=== PATIENT | female | born 1955 | race Caucasian/White ===

== ENCOUNTER 2017-02-28 11:38 | Emergency (ER) | payer OTHER ==
[2017-02-28 11:44] VITALS: BP 113/76
== END 2017-02-28 12:09 | disposition left against medical advice (07) ==
LOC: ED 11:38
DX: Z53.21 Procedure and treatment not carried out due to patient leaving prior to being seen by health care provider (principal); T63.441A Toxic effect of venom of bees, accidental (unintentional), initial encounter

== ENCOUNTER 2020-12-23 13:59 | Emergency (ER) | payer MEDICARE, OTHER ==
--- OUTSIDE RECORDS SUMMARY | 2020-12-23 14:02 | EXTERNAL MEDICAL SUMMARY RPT | Continuity of Care Document ---
:1955 Demographics Phone Unavailable Preferred Language Bolivian Marital Status Unknown Baptism Affiliation Unknown Race Unknown Ethnic Group Unknown Author Organization [place] Address [address] [phone] Phone Care Team Providers Name Role Phone Clerc Unavailable Unavailable Allergies Encounters Medications Problems date description facility [id number] Pain in [facility] Results
[2020-12-23] MEDS ORDERED: diphenhydrAMINE INJ 50 MG/ML VIAL ONE (14:04)
[2020-12-23] MEDS ORDERED: DEXAMETHASONE 10 MG/ML VIAL IVP STA (14:08)
[2020-12-23] MEDS ORDERED: diphenhydrAMINE INJ 50 MG/ML VIAL IVP STA (14:12)
--- OUTSIDE RECORDS SUMMARY | 2020-12-23 14:43 | EXTERNAL MEDICAL SUMMARY RPT | Continuity of Care Document ---
:1955 Demographics Phone Unavailable Preferred Language Martiniquais Marital Status Unknown Yarsanism Affiliation Unknown Race Unknown Ethnic Group Unknown Author Organization [place] Address [address] [phone] Phone Care Team Providers Name Role Phone Clerc Unavailable Unavailable Allergies Encounters Medications Problems date description facility [id number] Pain in [facility] Results
[2020-12-23 15:07] VITALS: BP 122/73
--- NOTE | 2020-12-23 15:31 | ED Physician Documentation ---
History of Present Illness - Stated complaint Stated Complaint: BEE STING/ALLERGY - Chief complaint Chief Complaint: Allergic Rx - History obtained from History obtained from: Patient - History of Present Illness Timing: Today - Additonal information Additional information: 65-year-old female was stung by a bee today in the left hand and she has previously developed anaphylaxis. She developed some nausea and dyspnea and her administered her epinephrine shot. Following that she became quite shaky and she has come to the emergency department by ambulance. Review of Systems Constitutional: denies: Fever Eyes: denies: Decreased vision Ears: denies: Ear pain Nose: denies: Congestion Throat: denies: Sore throat Cardiac: denies: Chest pain / pressure, Palpitations Respiratory: reports: Dyspnea. denies: Cough GI: reports: Nausea. 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 : None HEENT: None Psych: None Musculoskeletal: None Derm: None - Past Surgical History Past Surgical History: Yes General: Cholecystectomy, Colonoscopy Ortho: Other /USER EXPERIENCE ANALYST: Oophrectomy - Present Medications Home Medications: Ambulatory Orders Medication Instructions Recorded Confirmed Aspirin [Aspirin EC] 81 mg PO QPM 04/04/15 12/23/20 Fexofenadine [Sushma] 180 mg PO QPM 04/04/15 12/23/20 Lysine HCl [l-Lysine] 500 tab PO DAILY 04/04/15 12/23/20 Metformin HCl [Metformin HCl ER] 1,000 mg PO BID 04/04/15 12/23/20 Simvastatin 40 mg PO QPM 04/04/15 12/23/20 Ubidecarenone [Coq-10] 300 mg PO DAILY 04/04/15 12/23/20 lisinopriL [Lisinopril] 5 mg PO QPM 04/04/15 12/23/20 EPINEPHrine [Epinephrine] 0.3 mg IJ PRN PRN #2 syr 12/23/20 EPINEPHrine [Epinephrine] 0.3 mg IM ONCE PRN 12/23/20 12/23/20 - Allergies Allergies/Adverse Reactions: Allergies Allergy/AdvReac Type Severity Reaction Status Date / Time Cephalosporins Allergy Hives Verified 07/11/16 13:04 codeine Allergy Nausea Verified 02/28/17 11:44 venom-honey bee Allergy Anaphylaxis Verified 07/11/16 13:04 [bee venom (honey bee)] - Social History Does the pt smoke?: No Smoking Status: Never smoker Does the pt drink ETOH?: No Does the pt have substance abuse?: No - Immunizations Immunizations are current?: Yes - POLST Patient has POLST: No PD ED PE NORMAL - Vitals Vital signs reviewed: Yes (tachy and hypertensive with tachypnea) - General General: Alert and oriented X 3, Well developed/nourished - HEENT HEENT: Atraumatic, PERRL - Neck Neck: Supple, no meningeal sign, No bony TTP - Cardiac Cardiac: RRR, No murmur - Respiratory Respiratory: Clear bilaterally, Other (dyspnea) - Abdomen Abdomen: Soft, Non tender - Back Back: No CVA TTP, No spinal TTP - Derm Derm: Normal color, Warm and dry, No rash - Extremities Extremities: No deformity, No edema - Neuro Neuro: Alert and oriented X 3, crown ironer 2-12 intact, No motor deficit, No sensory deficit, Normal speech Eye Opening: Spontaneous Motor: Obeys Commands Verbal: Oriented GCS Score: 15 - Psych Psych: Normal mood, Normal affect Results - Vitals Vitals: Vital Signs - 24 hr 12/23/20 12/23/20 12/23/20 14:01 14:14 15:06 Temperature 36.9 C Heart Rate 104 H 91 84 Respiratory 100 H 20 16 Rate Blood Pressure 185/111 H 175/106 H 122/73 O2 Saturation 27 L 100 99 Oxygen O2 Source Room air PD MEDICAL DECISION MAKING - ED course Complexity details: considered differential, d/w patient, d/w family ED course: 65-year-old female with a bee sting has been given epinephrine and shows up into the emergency department with some shaking and anxiety. She is administered 25 mg of Benadryl and 10 mg of dexamethasone and feels much improved and wants to go home. Departure - Departure Disposition: 01 Home, Self Care Clinical Impression: Bee sting reaction Qualifiers: Encounter type: initial encounter Injury intent: accidental or unintentional Qualified Code(s): T63.441A - Toxic effect of venom of bees, accidental (unintentional), initial encounter Condition: Stable Instructions: ED Bite Sting Insect Gen Allergic React Follow-Up: India Juárez MD [Primary Care Provider] - Prescriptions: EPINEPHrine [Epinephrine] 0.3 mg IJ PRN PRN #2 syr PRN Reason: bee sting
== END 2020-12-23 15:49 | disposition home or self-care (01) ==
LOC: ED 13:59
DX: T63.441A Toxic effect of venom of bees, accidental (unintentional), initial encounter (principal); R06.00 Dyspnea, unspecified; R11.0 Nausea; M79.645 Pain in left finger(s); F41.9 Anxiety disorder, unspecified; I10 Essential (primary) hypertension; E11.9 Type 2 diabetes mellitus without complications; Z79.84 Long term (current) use of oral hypoglycemic drugs; Z79.82 Long term (current) use of aspirin
CPT/HCPCS: 36415; 96374; 99283; 99284; J1200

== ENCOUNTER 2021-11-12 11:11 | Outpatient (CLI) | payer MEDICARE, OTHER | END 2021-11-12 23:59 | disposition critical access hospital (66) | LOC: EMS 11:11 | DX: R07.89 Other chest pain (principal); R10.13 Epigastric pain; R11.2 Nausea with vomiting, unspecified; R53.1 Weakness; R42 Dizziness and giddiness | CPT/HCPCS: A0425; A0429 ==

== ENCOUNTER 2021-11-12 11:25 | Emergency (ER) | payer MEDICARE, OTHER ==
--- OUTSIDE RECORDS SUMMARY | 2021-11-12 11:40 | EXTERNAL MEDICAL SUMMARY RPT | Continuity of Care Document ---
:1955 Author Organization [facility] Address [address] [place] [address] Phone Care Team Providers Name Role Phone Clerc Unavailable Unavailable Allergies No information. Encounters No information. Medications No information. Problems Procedures date description facility [id number] [facility] Results No information. Vital Signs date measurement value source 20211111 weight_standard 53.07 lb 20211111 weight_metric 24.07 kg 20211111 temperature_standard 97.7 F 20211111 temperature_metric 36.5 C 20211111 respiration_rate 16 /min 20211111 height_standard 61 in 20211111 height_metric 154.94 cm 20211111 heart_rate 84 /min 20211111 BP_systolic 110 mm[Hg] 20211111 BP_diastolic 70 mm[Hg] 20211111 BMI 22.1 kg/m2
[2021-11-12 11:52] LABS: BASOPHILS % (AUTO) 0.6 %; EOSINOPHILS # (AUTO) 0.5 10^3/uL (0.0-0.7); EOSINOPHILS % (AUTO) 7.3 %; HCT - HEMATOCRIT 44.9 % (37.0-47.0); HGB - HEMOGLOBIN 15.3 g/dL (12.0-16.0); LYMPHOCYTES # (AUTO) 2.7 10^3/uL (1.5-3.5); MEAN CORPUSCULAR HEMOGLOBIN 30.5 pg (27.0-31.0); MEAN CORPUSCULAR HGB CONC 34.1 g/dL (32.0-36.0); MEAN CORPUSCULAR VOLUME 89.6 fL (81.0-99.0); MEAN PLATELET VOLUME 9.5 fL (7.9-10.8); MONOCYTES # (AUTO) 0.6 10^3/uL (0.0-1.0); MONOCYTES % (AUTO) 9.6 %; NEUTROPHILS # (AUTO) 2.7 10^3/uL (1.5-6.6); NEUTROPHILS % (AUTO) 41.2 %; PLT - PLATELET COUNT 185 10^3/uL (130-450); RED BLOOD COUNT 5.01 10^6/uL (4.20-5.40); RED CELL DISTRIBUTION WIDTH 12.1 % (12.0-15.0); WHITE BLOOD COUNT 6.5 x10^3/uL (4.8-10.8)
[2021-11-12 12:11] LABS: ALBUMIN 4.5 g/dL (3.2-5.5); ALBUMIN/GLOBULIN RATIO 1.5 (1.0-2.2); BILIRUBIN,TOTAL 0.9 mg/dL (0.2-1.0); CALCIUM 9.5 mg/dL (8.5-10.3); CREATININE 0.8 mg/dL (0.4-1.0); TOTAL PROTEIN 7.5 g/dL (6.7-8.2)
--- NOTE | 2021-11-12 12:20 | XRAY Report ---
PROCEDURE: Chest 1 View X-Ray INDICATIONS: Chest pain TECHNIQUE: One view of the chest was acquired. COMPARISON: CXR 04/04/2015. FINDINGS: Surgical changes and devices: None. Lungs and pleura: No pleural effusions or pneumothorax. Lungs are clear. Mediastinum: Mediastinal contours appear normal. Heart size is normal. Bones and chest wall: No suspicious bony lesions. Overlying soft tissues appear unremarkable. IMPRESSION: No acute cardiopulmonary abnormality. Reviewed by: Tariq Bassett MD on 11/12/2021 12:19 PM PDT Approved by: Tariq Bassett MD on 11/12/2021 12:19 PM PDT Station ID: [id number]
[2021-11-12] MEDS ORDERED: ONDANSETRON 4 MG/2 ML VIAL IVP STA (12:35)
[2021-11-12] MEDS ORDERED: SUCRALFATE 1 GM/10 ML UDC PO STA (12:36)
[2021-11-12] MEDS ORDERED: FAMOTIDINE 20 MG TABLET PO STA (12:36)
[2021-11-12] MEDS ORDERED: MAG HYDROX/AL HYDROX/SIMETH 30 ML UDC PO STA (12:36)
--- NOTE | 2021-11-12 12:42 | ED Physician Documentation ---
PD HPI CHEST PAIN - Stated complaint Stated Complaint: ABD PX - Chief complaint Chief Complaint: Abd Pain - History obtained from History obtained from: Patient, Family, EMS - History of Present Illness Timing - onset during: Rest Timing - duration: Days Timing - details: Abrupt onset Pain level max: 6 Pain level now: 0 Quality: Pressure, Aching Location: No: Substernal, Left chest, Right chest, Left shoulder/arm, Right shoulder/arm, Left neck, Right neck, Left jaw, Right jaw, Epigastric, Upper back Improved by: No: Rest, Oxygen, Nitro, ASA, Antacids, Other medication, Nothing Worsened by: No: Exertion, Inspiration, Eating, Movement, Palpation, Position Associated symptoms: Nausea, Vomiting. No: Shortness of air, Diaphoresis, Feeling faint / dizzy, General Weakness, Palpitations, Cough Similar symptoms before: Has not had sx before Recently seen: Not recently seen - Additional information Additional information: Patient is a 66-year-old female who presents to the emergency department with chest pain today. She states it started about 2 hours prior to arrival. Has now resolved. She states that it felt like a pressure in the center of her chest. She was nauseated and had vomiting. Has not had similar symptoms previously. No cardiac history. She is a diabetic. The pain did not radiate. She states that she had strawberries this morning and peanut butter. Nothing seemed to make it better or worse. She states that she had a cholecystectomy about 4 to 5 years ago. 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 : None HEENT: None Psych: None Musculoskeletal: None Derm: None - Past Surgical History Past Surgical History: Yes General: Cholecystectomy, Colonoscopy Ortho: Other /ROUTE JUMPER: Oophrectomy - Present Medications Home Medications: Ambulatory Orders Medication Instructions Recorded Confirmed Aspirin [Aspirin EC] 81 mg PO QPM 04/04/15 12/23/20 Fexofenadine [Sushma] 180 mg PO QPM 04/04/15 12/23/20 Lysine HCl [l-Lysine] 500 tab PO DAILY 04/04/15 12/23/20 Metformin HCl [Metformin HCl ER] 1,000 mg PO BID 04/04/15 12/23/20 Simvastatin 40 mg PO QPM 04/04/15 12/23/20 Ubidecarenone [Coq-10] 300 mg PO DAILY 04/04/15 12/23/20 lisinopriL [Lisinopril] 5 mg PO QPM 04/04/15 12/23/20 EPINEPHrine [Epinephrine] 0.3 mg IJ PRN PRN #2 syr 12/23/20 EPINEPHrine [Epinephrine] 0.3 mg IM ONCE PRN 12/23/20 12/23/20 Famotidine [Pepcid] 20 mg PO BID #60 tablet 11/12/21 Promethazine [Phenergan] 25 mg PO Q6H PRN #10 tab 11/12/21 Sucralfate [Carafate] 1 gm PO ACHS #60 tablet 11/12/21 - Allergies Allergies/Adverse Reactions: Allergies Allergy/AdvReac Type Severity Reaction Status Date / Time ceftriaxone [From Rocephin] Allergy Rash Verified 11/12/21 11:39 Cephalosporins Allergy Hives Verified 07/11/16 13:04 codeine Allergy Nausea Verified 02/28/17 11:44 venom-honey bee Allergy Anaphylaxis Verified 07/11/16 13:04 [bee venom (honey bee)] - Social History Does the pt smoke?: No Smoking Status: Never smoker Does the pt drink ETOH?: No Does the pt have substance abuse?: No - Immunizations Immunizations are current?: Yes - POLST Patient has POLST: No PD ED PE NORMAL - Vitals Vital signs reviewed: Yes - General General: Alert and oriented X 3, No acute distress - HEENT HEENT: PERRL, Moist mucous membranes - Neck Neck: Supple, no meningeal sign - Cardiac Cardiac: RRR, Strong equal pulses - Respiratory Respiratory: No respiratory distress, Clear bilaterally - Abdomen Abdomen: Soft, Non distended, Other (Mild tenderness to palpation left upper quadrant. No peritoneal signs) - Derm Derm: Warm and dry - Extremities Extremities: No edema - Neuro Neuro: Alert and oriented X 3 - Psych Psych: Normal mood, Normal affect Results - Vitals Vitals: Vital Signs - 24 hr 11/12/21 11/12/21 11/12/21 11:34 11:40 15:02 Temperature 36.8 C 36.8 C Heart Rate 76 77 77 Respiratory 10 L 17 16 Rate Blood Pressure 179/82 H 179/82 H 118/83 H O2 Saturation 100 98 99 Oxygen O2 Source Room air - EKG (time done) 1144 Rate: Rate (enter#) (75) Rhythm: NSR [place]: Normal Intervals: Normal [place] QRS: Normal Ischemia: Normal ST segments - Labs Labs: Laboratory Tests 11/12/21 11/12/21 11/12/21 11:47 11:47 11:47 WBC 6.5 RBC 5.01 Hgb 15.3 Hct 44.9 MCV 89.6 MCH 30.5 MCHC 34.1 RDW 12.1 Plt Count 185 MPV 9.5 Neut # (Auto) 2.7 Lymph # (Auto) 2.7 Bertie # (Auto) 0.6 Eos # (Auto) 0.5 Baso # (Auto) 0.0 Absolute Nucleated RBC 0.00 Nucleated RBC % 0.0 Sodium 137 Potassium 4.0 Chloride 102 Carbon Dioxide 19 L Anion Gap 16.0 H BUN 24 H Creatinine 0.8 Estimated GFR (MDRD) 71 L Glucose 162 H Calcium 9.5 Total Bilirubin 0.9 AST 33 ALT 33 Alkaline Phosphatase 58 Troponin I High Sens < 2.3 L Total Protein 7.5 Albumin 4.5 Globulin 3.0 Albumin/Globulin Ratio 1.5 Lipase 71 H 11/12/21 13:51 WBC RBC Hgb Hct MCV MCH MCHC RDW Plt Count MPV Neut # (Auto) Lymph # (Auto) Bertie # (Auto) Eos # (Auto) Baso # (Auto) Absolute Nucleated RBC Nucleated RBC % Sodium Potassium Chloride Carbon Dioxide Anion Gap BUN Creatinine Estimated GFR (MDRD) Glucose Calcium Total Bilirubin AST ALT Alkaline Phosphatase Troponin I High Sens 4.9 Total Protein Albumin Globulin Albumin/Globulin Ratio Lipase - Rads (name of study) Chest x-ray Radiology: Final report received, EMP read contemporaneously, See rad report (No acute abnormality) PD MEDICAL DECISION MAKING - ED course Complexity details: reviewed results, re-evaluated patient, considered differential (No ST elevation VA, no aortic dissection, no PE, no tension pneumothorax, no aortic aneurysm), d/w patient ED course: Negative high-sensitivity troponin x2. Asymptomatic in the emergency department after GI cocktail. Likely that her symptoms represent GERD/gastritis. She was mildly tender epigastric/left upper quadrant. No peritoneal signs. No acute findings on EKG or chest x-ray. We will have her follow-up with her PCP for a cardiac stress test and for further care. Patient counseled regarding signs and symptoms for which I believe and urgent re-evaluation would be necessary. Patient with good understanding of and agreement to plan and is comfortable going home at this time This document was made in part using voice recognition software. While efforts are made to proofread this document, sound alike and grammatical errors may occur. Departure - Departure Disposition: Home, Self Care Clinical Impression: Chest pain Qualifiers: Chest pain type: unspecified Qualified Code(s): R07.9 - Chest pain, unspecified GERD (gastroesophageal reflux disease) Qualifiers: Esophagitis presence: with esophagitis Esophagitis bleeding: without hemorrhage Qualified Code(s): K21.00 - Gastro-esophageal reflux disease with esophagitis, without bleeding Condition: Good Instructions: ED Chest Pain Atypical Unkn Cause, ED GERD Follow-Up: SAMY MIRZA MD [Primary Care Provider] - Prescriptions: Sucralfate [Carafate] 1 gm PO ACHS #60 tablet Famotidine [Pepcid] 20 mg PO BID #60 tablet Promethazine [Phenergan] 25 mg PO Q6H PRN #10 tab PRN Reason: Nausea / Vomiting Comments: Your heart test do not show any acute abnormalities today. It is recommended that you follow-up with your doctor to have a cardiac stress test. Please return if you worsen. Return if your symptoms recur. Your doctor may also want to schedule an endoscopy for you to evaluate for possible gastroesophageal reflux and/or ulcers. Your prescriptions were sent to the [facility] today. Discharge Date/Time: 11/12/21 15:11
[2021-11-12 15:11] VITALS: BP 118/83
== END 2021-11-12 15:11 | disposition home or self-care (01) ==
LOC: EDUNIT# → ED 11:25
DX: R07.9 Chest pain, unspecified (principal); K21.9 Gastro-esophageal reflux disease without esophagitis
CPT/HCPCS: 36415; 71045; 80053; 83690; 84484; 85025; 93005; 96374; 99284; A9270

== ENCOUNTER 2022-08-03 15:07 | Emergency (ER) | payer MEDICARE, OTHER ==
--- OUTSIDE RECORDS SUMMARY | 2022-08-03 15:44 | EXTERNAL MEDICAL SUMMARY RPT | Continuity of Care Document ---
:1955 Author Organization [facility] Address [address] [place] [address] Phone Care Team Providers Name Role Phone India Juárez Unavailable Unavailable Allergies No information. Encounters No information. Functional Status No information. Immunizations No information. Medications No information. Problems No information. Procedures No information. Results/Labs test date author facility value unit interpret ation Result panel 1 (unknown) (no (unknown) (unknown) (no value) (units (unk nown) date) unknown) (unknown) (no (unknown) (unknown) (1) Obstructive (units (unknown) date) sleep apnea unknown) (adult) (pediatric): (unknown) (no (unknown) (unknown) (2) Excessive (units ( unknown) date) daytime unknown) sleepiness: (unknown) (no (unknown) (unknown) (3) Insomnia: (units ( unknown) date) unknown) (unknown) (no (unknown) (unknown) [id number] (units (unkno wn) date) unknown) (unknown) (no (unknown) (unknown) 06/21/22 (units (unkno wn) date) unknown) (unknown) (no (unknown) (unknown) Adhere to (units (unkn own) date) regular mealtime unknown) schedule, avoid snacking (unknown) (no (unknown) (unknown) Affect: normal (units (unknown) date) affect unknown) (unknown) (no (unknown) (unknown) Age/Sex: 67 / F (units (unknown) date) Date of Service: unknown) (unknown) (no (unknown) (unknown) Jessica is here (units (unknown) date) for her 6-monthly unknown) visit to ensure stability with her PAP (unknown) (no (unknown) (unknown) Allergies (units (unkn own) date) unknown) (unknown) (no (unknown) (unknown) [place] (units ( unknown) date) [id number] unknown) (unknown) (no (unknown) (unknown) Assessment + (units (u nknown) date) Plan unknown) (unknown) (no (unknown) (unknown) Assessment and (units (unknown) date) Plan: unknown) (unknown) (no (unknown) (unknown) Associate your (units ( unknown) date) bed with sleep. unknown) It's not a good idea to use your bed to watch TV, (unknown) (no (unknown) (unknown) Attending Dr: (units ( unknown) date) rOal Perez MD unknown) (unknown) (no (unknown) (unknown) Attitude: (units (unkn own) date) cooperative unknown) (unknown) (no (unknown) (unknown) AutoCPAP Set (units (u nknown) date) Pressures: 7-13 unknown) cwp (unknown) (no (unknown) (unknown) Avoid alcohol (units ( unknown) date) after 4 pm unknown) (unknown) (no (unknown) (unknown) Avoid (units (unkno wn) date) medications which unknown) may interfere with sleep (unknown) (no (unknown) (unknown) Avoid random (units (u nknown) date) napping during unknown) the day; it can disturb the normal pattern of sleep (unknown) (no (unknown) (unknown) Avoid stimulants (units (unknown) date) such as caffeine, unknown) nicotine, and alcohol too close to bedtime. (unknown) (no (unknown) (unknown) CPAP (7-13 cwp) (units (unknown) date) unknown) (unknown) (no (unknown) (unknown) CPAP, and will (units (unknown) date) not come in for unknown) adjustments. (unknown) (no (unknown) (unknown) Cardiac (units (unkno wn) date) unknown) (unknown) (no (unknown) (unknown) Chief Complaint: (units (unknown) date) Patient is here unknown) to follow up on therapy for RUTH (unknown) (no (unknown) (unknown) Clinical Course (units (unknown) date) unknown) (unknown) (no (unknown) (unknown) Cognition: (units (unk nown) date) normal cognition unknown) (unknown) (no (unknown) (unknown) Condition is (units (u nknown) date) Onset: Chronic unknown) and ongoing condition (unknown) (no (unknown) (unknown) Conjunctivae: (units ( unknown) date) conjunctivae unknown) normal (unknown) (no (unknown) (unknown) Consider weaning (units (unknown) date) caffeine use, unknown) starting with no caffeine after 3pm (unknown) (no (unknown) (unknown) Const (units (unkno wn) date) unknown) (unknown) (no (unknown) (unknown) : 1955 (units (unknown) date) Acct:[id number] unknown) (unknown) (no (unknown) (unknown) Denies chest (units (u nknown) date) pain or nocturnal unknown) palpitations (unknown) (no (unknown) (unknown) Denies (units (unkno wn) date) depression, unknown) anxiety, napping, hypnagogic hallucinations or sleep (unknown) (no (unknown) (unknown) Denies dyspnea (units (unknown) date) at night or cough unknown) (unknown) (no (unknown) (unknown) Denies myalgia (units (unknown) date) interfering with unknown) sleep, arthralgia interfering with sleep, (unknown) (no (unknown) (unknown) Denies reflux (units ( unknown) date) pain at night or unknown) bloating on CPAP (unknown) (no (unknown) (unknown) Denies snoring (units (unknown) date) and Denies stops unknown) breathing during sleep (unknown) (no (unknown) (unknown) Depression (units (unk nown) date) unknown) (unknown) (no (unknown) (unknown) Dept at (units (unkno wn) date) . unknown) (unknown) (no (unknown) (unknown) Details: (units (unkno wn) date) unknown) (unknown) (no (unknown) (unknown) Device data last (units (unknown) date) 30 days: unknown) (unknown) (no (unknown) (unknown) Documented By: (units (unknown) date) Oral Perez MD unknown) 06/21/22 1547 (unknown) (no (unknown) (unknown) Draft (units (unkno wn) date) unknown) (unknown) (no (unknown) (unknown) Drowsy driving (units (unknown) date) handout made unknown) available. (unknown) (no (unknown) (unknown) ENT (units (unkno wn) date) unknown) (unknown) (no (unknown) (unknown) Ears: hearing (units ( unknown) date) grossly normal unknown) bilaterally and external ears normal (unknown) (no (unknown) (unknown) Effort + (units (unkno wn) date) Inspection: unknown) normal respiratory effort, able to speak in complete (unknown) (no (unknown) (unknown) Ensure adequate (units (unknown) date) exposure to unknown) natural light. This is particularly important for (unknown) (no (unknown) (unknown) Establish a (units (unk nown) date) regular relaxing unknown) bedtime routine. Try to avoid emotionally upsetting (unknown) (no (unknown) (unknown) Exam Narrative (units (unknown) date) unknown) (unknown) (no (unknown) (unknown) Exam Narrative: (units (unknown) date) unknown) (unknown) (no (unknown) (unknown) Exam (units (unkno wn) date) unknown) (unknown) (no (unknown) (unknown) Eyes (units (unkno wn) date) unknown) (unknown) (no (unknown) (unknown) Food can be (units (un known) date) disruptive right unknown) before sleep; stay away from large meals close to (unknown) (no (unknown) (unknown) GERD (units (unkno wn) date) (gastroesophageal unknown) reflux disease) (unknown) (no (unknown) (unknown) GI (units (unkno wn) date) unknown) (unknown) (no (unknown) (unknown) (units (unkno wn) date) unknown) (unknown) (no (unknown) (unknown) General: (units (unkno wn) date) cooperative and unknown) no acute distress (unknown) (no (unknown) (unknown) General: patient (units (unknown) date) alert, patient unknown) awake and patient oriented x3 (unknown) (no (unknown) (unknown) Get regular (units (un known) date) moderate exercise unknown) (30 minutes, 3x/week) (unknown) (no (unknown) (unknown) HENMT (units (unkno wn) date) unknown) (unknown) (no (unknown) (unknown) HPI Sleep Follow (units (unknown) date) Up unknown) (unknown) (no (unknown) (unknown) HPI (units (unkno wn) date) unknown) (unknown) (no (unknown) (unknown) Head: normal to (units (unknown) date) inspection unknown) (unknown) (no (unknown) (unknown) Hyperlipidemia (units (unknown) date) unknown) (unknown) (no (unknown) (unknown) Hypertension (units (u nknown) date) unknown) (unknown) (no (unknown) (unknown) Intake (units (unkno wn) date) unknown) (unknown) (no (unknown) (unknown) Light exposure (units (unknown) date) during the day unknown) helps maintain a healthy sleep-wake cycle. In (unknown) (no (unknown) (unknown) Loc: SLEEP (units (unk nown) date) unknown) (unknown) (no (unknown) (unknown) Make sure that (units ( unknown) date) the sleep unknown) environment is pleasant and relaxing. 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 (-12/29/20) (unknown) (no (unknown) (unknown) Mood: congruent (units (unknown) date) mood unknown) (unknown) (no (unknown) (unknown) Musc (units (unkno wn) date) unknown) (unknown) (no (unknown) (unknown) Neck (units (unkno wn) date) unknown) (unknown) (no (unknown) (unknown) Neck: normal (units (u nknown) date) visual inspection unknown) (unknown) (no (unknown) (unknown) Neuro (units (unkno wn) date) unknown) (unknown) (no (unknown) (unknown) Neurological (units (u nknown) date) unknown) (unknown) (no (unknown) (unknown) No Known Drug (units ( unknown) date) Allergies Allergy unknown) (Unverified 11/08/18 10:26) (unknown) (no (unknown) (unknown) Nutritional (units (un known) date) Appearance: unknown) average body habitus (unknown) (no (unknown) (unknown) Obstructive (units (un known) date) sleep apnea of unknown) adult (unknown) (no (unknown) (unknown) PFSH (units (unkno wn) date) unknown) (unknown) (no (unknown) (unknown) Patient got her (units (unknown) date) new [employer] unknown) II and is on nasal CPAP at 7-13 cwp and reports (unknown) (no (unknown) (unknown) Patient (units (unkno wn) date) instructed to use unknown) scheduled naps as needed for drowsiness safety (unknown) (no (unknown) (unknown) Patient reports (units (unknown) date) a history of unknown) snoring and a disturbed sleep pattern. There is (unknown) (no (unknown) (unknown) Patient reports (units (unknown) date) difficulty unknown) falling asleep is denied, difficulty staying asleep (unknown) (no (unknown) (unknown) Patient reports (units (unknown) date) symptoms of unknown) chronic insomnia for more than 3 months as evidenced (unknown) (no (unknown) (unknown) Patient was (units (un known) date) encouraged to unknown) continue PAP therapy at 7-15 cwp (unknown) (no (unknown) (unknown) Patient was (units (un known) date) encouraged to unknown) increase CPAP usage to a minimum of 4 hours a night, (unknown) (no (unknown) (unknown) Patient was (units (un known) date) instructed to unknown) avoid driving or operating heavy machinery when (unknown) (no (unknown) (unknown) Patient was (units (un known) date) instructed to unknown) return sooner if any questions or concerns arise. (unknown) (no (unknown) (unknown) Patient: (units (unkno wn) date) Jessica Caro E unknown) MR#: [id number] (unknown) (no (unknown) (unknown) Pertinent (units (unkn own) date) Positives/Negativ unknown) es (unknown) (no (unknown) (unknown) Plan (units (unkno wn) date) unknown) (unknown) (no (unknown) (unknown) Properly timed (units (unknown) date) exercise can unknown) promote good sleep. Vigorous exercise should be (unknown) (no (unknown) (unknown) Psych (units (unkno wn) date) unknown) (unknown) (no (unknown) (unknown) Psychological (units ( unknown) date) unknown) (unknown) (no (unknown) (unknown) ROS Sleep (units (unkn own) date) unknown) (unknown) (no (unknown) (unknown) Reason For Visit (units (unknown) date) unknown) (unknown) (no (unknown) (unknown) Reports morning (units (unknown) date) headache; Denies unknown) dizzy in the morning, vertigo or trouble (unknown) (no (unknown) (unknown) Reports nasal (units ( unknown) date) congestion at unknown) night and dry mouth in the morning; Denies runny (unknown) (no (unknown) (unknown) Reports nocturia (units (unknown) date) unknown) (unknown) (no (unknown) (unknown) Reports seasonal (units (unknown) date) allergies; Denies unknown) itchy eyes, redness or blurry vision (unknown) (no (unknown) (unknown) Resp (units (unkno wn) date) unknown) (unknown) (no (unknown) (unknown) Respiratory (units (un known) date) unknown) (unknown) (no (unknown) (unknown) Return visit in (units (unknown) date) 6 months to unknown) assess continued response to PAP therapy (unknown) (no (unknown) (unknown) Sclera: sclerae (units (unknown) date) normal unknown) (unknown) (no (unknown) (unknown) Signed By: (units (unk nown) date) unknown) (unknown) (no (unknown) (unknown) Sleep Schedule (units (unknown) date) Branch: unknown) consistent, daytime somnolence frequent, snoring not (unknown) (no (unknown) (unknown) Sleep Visit (units (un known) date) unknown) (unknown) (no (unknown) (unknown) [facility] unknown) (unknown) (no (unknown) (unknown) Smoking Status: (units (unknown) date) Never smoker unknown) (unknown) (no (unknown) (unknown) Social History (units (unknown) date) unknown) (unknown) (no (unknown) (unknown) Speech: speech (units (unknown) date) normal unknown) (unknown) (no (unknown) (unknown) Symptoms (units (unkno wn) date) unknown) (unknown) (no (unknown) (unknown) The patient (units (un known) date) reports symptoms unknown) of excessive daytime sleepiness as evidenced by (unknown) (no (unknown) (unknown) This note may (units ( unknown) date) have been all or unknown) partially generated using voice recognition (unknown) (no (unknown) (unknown) Tobacco + (units (unkn own) date) Substance Use unknown) (unknown) (no (unknown) (unknown) Tobacco Status (units (unknown) date) unknown) (unknown) (no (unknown) (unknown) Treatment (units (unkn own) date) Effects: Pap unknown) Treatment Response/Side Effects: adherent to current PAP (unknown) (no (unknown) (unknown) Treatment (units (unkn own) date) Response/Side unknown) Affects (unknown) (no (unknown) (unknown) Type 2 diabetes (units (unknown) date) mellitus unknown) (unknown) (no (unknown) (unknown) Usage: 100%, (units (u nknown) date) w/100% of that unknown) time > 4 hours. Leak: 14 sec flowAHI: 3.8 (unknown) (no (unknown) (unknown) Visit Reasons: (units (unknown) date) 6m unknown) (unknown) (no (unknown) (unknown) Visit type (FU): (units (unknown) date) follow up of RUTH unknown) therapy Follow up evaluation of RUTH therapy: (unknown) (no (unknown) (unknown) While alcohol is (units (unknown) date) well known to unknown) speed the onset of sleep, it disrupts sleep in (unknown) (no (unknown) (unknown) activities, you (units (unknown) date) may have more unknown) problems getting back to sleep during the night. (unknown) (no (unknown) (unknown) addition, (units (unkn own) date) avoiding unknown) nighttime bright light exposure, which can occur with many (unknown) (no (unknown) (unknown) also a history (units (unknown) date) of hypertension unknown) with a Mallampati score of IV. For this the (unknown) (no (unknown) (unknown) an [place] (units (unk nown) date) Sleepiness Score unknown) of 12/24. Discussed symptoms and risks of (unknown) (no (unknown) (unknown) an independent (units (unknown) date) problem. This has unknown) improved with more consolidated sleep and she (unknown) (no (unknown) (unknown) and wakefulness. (units (unknown) date) Scheduled napping unknown) may be considered if appropriate for the opt (unknown) (no (unknown) (unknown) appreciated, (units (u nknown) date) apnea not unknown) witnessed, choking or gasping Choking or Gasping Branch: (unknown) (no (unknown) (unknown) bedtime. Also (units (u nknown) date) dietary changes unknown) can cause sleep problems, if someone is struggling (unknown) (no (unknown) (unknown) bothering her (units ( unknown) date) sleep is her unknown) 's snoring; it appears he stopped using his (unknown) (no (unknown) (unknown) bring your (units (unk nown) date) problems to bed. unknown) (unknown) (no (unknown) (unknown) but increased (units ( unknown) date) benefit from more unknown) usage was also explained. (unknown) (no (unknown) (unknown) by trouble (units (unkn own) date) falling asleep, unknown) trouble staying asleep and non-restorative sleep. Thi (unknown) (no (unknown) (unknown) can be seen (units (un known) date) secondary to unknown) sleep apnea, insomnia, depression, medical conditions (unknown) (no (unknown) (unknown) caregiver/suppor (units (unknown) date) t person: No unknown) (unknown) (no (unknown) (unknown) comfortable, the (units (unknown) date) room should be unknown) quiet, not too hot or cold, or too bright. (unknown) (no (unknown) (unknown) concentrating or (units (unknown) date) focusing unknown) (unknown) (no (unknown) (unknown) congestion at (units ( unknown) date) night, reports unknown) dry mouth (when the is no water in the machine), (unknown) (no (unknown) (unknown) continued use of (units (unknown) date) PAP therapy. The unknown) patient is willing to continue with PAP (unknown) (no (unknown) (unknown) conversations (units ( unknown) date) and activities unknown) before trying to go to sleep. Don't dwell on, or (unknown) (no (unknown) (unknown) daytime sleeping (units (unknown) date) and an elevated unknown) [place] Sleepiness Scale score of 06/10. This (unknown) (no (unknown) (unknown) denied (units (unkno wn) date) unknown) (unknown) (no (unknown) (unknown) denied, early (units ( unknown) date) morning awakening unknown) denied, spending time in bed not sleeping a (unknown) (no (unknown) (unknown) denied, epworth (units (unknown) date) sleep scale score unknown) (07/10), bruxism Bruxism Branch: denied, sleep (unknown) (no (unknown) (unknown) denies night (units (u nknown) date) sweats, reports unknown) morning headache (migraines), reports nasal (unknown) (no (unknown) (unknown) denies sore (units (un known) date) throat in the unknown) morning, denies nocturnal cough, denies nocturnal (unknown) (no (unknown) (unknown) details: to (units (un known) date) Kristopher, lives in unknown) [place] (unknown) (no (unknown) (unknown) discuss OA for (units (unknown) date) travel. unknown) (unknown) (no (unknown) (unknown) dishes. And, (units (u nknown) date) remember, unknown) chocolate has caffeine. (unknown) (no (unknown) (unknown) dizziness in the (units (unknown) date) morning or denies unknown) trouble consentrating/foc using durng the day (unknown) (no (unknown) (unknown) done before bed (units (unknown) date) to help initiate unknown) a restful night's sleep. (unknown) (no (unknown) (unknown) drowsiness. (units (un known) date) unknown) (unknown) (no (unknown) (unknown) drowsy. (units (unkno wn) date) unknown) (unknown) (no (unknown) (unknown) given a list of (units (unknown) date) dentists who unknown) fabricate oral appliances. (unknown) (no (unknown) (unknown) have occurred. (units (unknown) date) If there are any unknown) questions, please contact the Medical Records (unknown) (no (unknown) (unknown) household (units (unkn own) date) members: spouse unknown) (unknown) (no (unknown) (unknown) housing: house (units (unknown) date) unknown) (unknown) (no (unknown) (unknown) imal sleep (units (unk nown) date) schedule. unknown) (unknown) (no (unknown) (unknown) including no (units (u nknown) date) snoring and no unknown) daytime sleepiness. Her compliance data indicates (unknown) (no (unknown) (unknown) listen to the (units ( unknown) date) radio, or read as unknown) if you associate falling asleep with these (unknown) (no (unknown) (unknown) little, normal (units ( unknown) date) bedtime unknown) (8559-0113), normal wake time (0400-6086), sleep schedule (unknown) (no (unknown) (unknown) lives (units (unkno wn) date) independently: unknown) Yes (unknown) (no (unknown) (unknown) marital status: (units (unknown) date) unknown) (unknown) (no (unknown) (unknown) may occur. (units (unk nown) date) Occasional unknown) wrong-word or 'sound-alike' substitutions may have (unknown) (no (unknown) (unknown) no problems with (units (unknown) date) the pressure or unknown) the mask. She continues to use her machine (unknown) (no (unknown) (unknown) nose or sore (units (u nknown) date) throat in the unknown) morning (unknown) (no (unknown) (unknown) occurred due to (units (unknown) date) the inherent unknown) limitations of voice recognition software. Please (unknown) (no (unknown) (unknown) older people who (units (unknown) date) may not venture unknown) outside as frequently as children and adults. (unknown) (no (unknown) (unknown) on PAP well and (units (unknown) date) sleep quality unknown) well (unknown) (no (unknown) (unknown) or can be a (units (unk nown) date) primary problem. unknown) This is unchanged today with a daytime sleeping and (unknown) (no (unknown) (unknown) palpitations, (units ( unknown) date) denies heart burn unknown) symptoms at night, reports nocturia, denies (unknown) (no (unknown) (unknown) paralysis (units (unkn own) date) unknown) (unknown) (no (unknown) (unknown) patient has been (units (unknown) date) on nasal CPAP unknown) therapy. Her machine was replaced in 2017 and is (unknown) (no (unknown) (unknown) personal (units (unkno wn) date) electronic unknown) devices, can also help maintain a healthy sleep-wake cycle. (unknown) (no (unknown) (unknown) read the note (units ( unknown) date) carefully and unknown) recognize, using context, where these substitutions (unknown) (no (unknown) (unknown) regularly and (units ( unknown) date) clinical response unknown) to nasal CPAP, with an optimal flowAHI. She (unknown) (no (unknown) (unknown) reports no (units (unk nown) date) snoring and says unknown) she feels rested in the morning. She would like to (unknown) (no (unknown) (unknown) reports she (units (un known) date) feels she is unknown) sleeping well. Sleep hygiene has been reviewed. (unknown) (no (unknown) (unknown) s can be seen (units (u nknown) date) secondary to unknown) sleep apnea, depression, medical conditions or can be (unknown) (no (unknown) (unknown) sentences, no (units ( unknown) date) audible wheezes unknown) and no cough (unknown) (no (unknown) (unknown) software. (units (unkn own) date) Although every unknown) effort is made to edit content, manager report errors (unknown) (no (unknown) (unknown) taken in the (units (u nknown) date) morning or late unknown) afternoon. A relaxing exercise, like yoga, can be (unknown) (no (unknown) (unknown) talking Sleep (units ( unknown) date) Talking Branch: unknown) denied and sleep walking Sleep Walking Branch: (unknown) (no (unknown) (unknown) that her (units (unkno wn) date) pressure should unknown) be increased. It is clear she would benefit from the (unknown) (no (unknown) (unknown) the second half (units (unknown) date) as the body unknown) begins to metabolize the alcohol, causing arousal. (unknown) (no (unknown) (unknown) therapy. Patient (units (unknown) date) would also like unknown) to consider oral appliance therapy. She will be (unknown) (no (unknown) (unknown) therapy. She has (units (unknown) date) been doing well unknown) since last visit. She is reporting no problems (unknown) (no (unknown) (unknown) treatment stable (units (unknown) date) on treatment unknown) (unknown) (no (unknown) (unknown) weakness (units (unkno wn) date) associated with unknown) strong emotion or sleep paralysis (unknown) (no (unknown) (unknown) with a sleep (units (u nknown) date) problem, it's not unknown) a good time to start experimenting with spicy (unknown) (no (unknown) (unknown) with the (units (unkno wn) date) machine, mask or unknown) pressure. Mentions that the only thing really (unknown) (no (unknown) (unknown) working well. (units ( unknown) date) Patient's unknown) compliance is excellent with positive clinical response Result panel 2 (unknown) (no (unknown) (unknown) (no value) (units (unk nown) date) unknown) (unknown) (no (unknown) (unknown) (1) Obstructive (units (unknown) date) sleep apnea unknown) (adult) (pediatric): (unknown) (no (unknown) (unknown) (2) Excessive (units ( unknown) date) daytime unknown) sleepiness: (unknown) (no (unknown) (unknown) (3) Insomnia: (units ( unknown) date) unknown) (unknown) (no (unknown) (unknown) [id number] (units (unkno wn) date) unknown) (unknown) (no (unknown) (unknown) 06/21/22 (units (unkno wn) date) unknown) (unknown) (no (unknown) (unknown) Adhere to (units (unkn own) date) regular mealtime unknown) schedule, avoid snacking (unknown) (no (unknown) (unknown) Affect: normal (units (unknown) date) affect unknown) (unknown) (no (unknown) (unknown) Age/Sex: 67 / F (units (unknown) date) Date of Service: unknown) (unknown) (no (unknown) (unknown) Jessica is here (units (unknown) date) for her 6-monthly unknown) visit to ensure stability with her PAP (unknown) (no (unknown) (unknown) Allergies (units (unkn own) date) unknown) (unknown) (no (unknown) (unknown) 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 unknown) It's not a good idea to use your bed to watch TV, (unknown) (no (unknown) (unknown) Attending Dr: (units ( unknown) date) Oral Perez MD unknown) (unknown) (no (unknown) (unknown) Attitude: (units (unkn own) date) cooperative unknown) (unknown) (no (unknown) (unknown) AutoCPAP Set (units (u nknown) date) Pressures: 7-13 unknown) cwp (unknown) (no (unknown) (unknown) Avoid alcohol (units ( unknown) date) after 4 pm unknown) (unknown) (no (unknown) (unknown) Avoid (units (unkno wn) date) medications which unknown) may interfere with sleep (unknown) (no (unknown) (unknown) Avoid random (units (u nknown) date) napping during unknown) the day; it can disturb the normal pattern of sleep (unknown) (no (unknown) (unknown) Avoid stimulants (units (unknown) date) such as caffeine, unknown) nicotine, and alcohol too close to bedtime. (unknown) (no (unknown) (unknown) CPAP (7-13 cwp) (units (unknown) date) unknown) (unknown) (no (unknown) (unknown) CPAP, and will (units (unknown) date) not come in for unknown) adjustments. (unknown) (no (unknown) (unknown) Cardiac (units (unkno wn) date) unknown) (unknown) (no (unknown) (unknown) Chief Complaint: (units (unknown) date) Patient is here unknown) to follow up on therapy for RUTH (unknown) (no (unknown) (unknown) Clinical Course (units (unknown) date) unknown) (unknown) (no (unknown) (unknown) Cognition: (units (unk nown) date) normal cognition unknown) (unknown) (no (unknown) (unknown) Condition is (units (u nknown) date) Onset: Chronic unknown) and ongoing condition (unknown) (no (unknown) (unknown) Conjunctivae: (units ( unknown) date) conjunctivae unknown) normal (unknown) (no (unknown) (unknown) Consider weaning (units (unknown) date) caffeine use, unknown) starting with no caffeine after 3pm (unknown) (no (unknown) (unknown) Const (units (unkno wn) date) unknown) (unknown) (no (unknown) (unknown) : 1955 (units (unknown) date) Acct:[id number] unknown) (unknown) (no (unknown) (unknown) Denies chest (units (u nknown) date) pain or nocturnal unknown) palpitations (unknown) (no (unknown) (unknown) Denies (units (unkno wn) date) depression, unknown) anxiety, napping, hypnagogic hallucinations or sleep (unknown) (no (unknown) (unknown) Denies dyspnea (units (unknown) date) at night or cough unknown) (unknown) (no (unknown) (unknown) Denies myalgia (units (unknown) date) interfering with unknown) sleep, arthralgia interfering with sleep, (unknown) (no (unknown) (unknown) Denies reflux (units ( unknown) date) pain at night or unknown) bloating on CPAP (unknown) (no (unknown) (unknown) Denies snoring (units (unknown) date) and Denies stops unknown) breathing during sleep (unknown) (no (unknown) (unknown) Depression (units (unk nown) date) unknown) (unknown) (no (unknown) (unknown) Dept at (units (unkno wn) date) . unknown) (unknown) (no (unknown) (unknown) Details: (units (unkno wn) date) unknown) (unknown) (no (unknown) (unknown) Device data last (units (unknown) date) 30 days: unknown) (unknown) (no (unknown) (unknown) Documented By: (units (unknown) date) Oral Perez MD unknown) 06/21/22 1547 (unknown) (no (unknown) (unknown) Draft (units (unkno wn) date) unknown) (unknown) (no (unknown) (unknown) Drowsy driving (units (unknown) date) handout made unknown) available. (unknown) (no (unknown) (unknown) ENT (units (unkno wn) date) unknown) (unknown) (no (unknown) (unknown) Ears: hearing (units ( unknown) date) grossly normal unknown) bilaterally and external ears normal (unknown) (no (unknown) (unknown) Effort + (units (unkno wn) date) Inspection: unknown) normal respiratory effort, able to speak in complete (unknown) (no (unknown) (unknown) Ensure adequate (units (unknown) date) exposure to unknown) natural light. This is particularly important for (unknown) (no (unknown) (unknown) Establish a (units (unk nown) date) regular relaxing unknown) bedtime routine. Try to avoid emotionally upsetting (unknown) (no (unknown) (unknown) Exam Narrative (units (unknown) date) unknown) (unknown) (no (unknown) (unknown) Exam Narrative: (units (unknown) date) unknown) (unknown) (no (unknown) (unknown) Exam (units (unkno wn) date) unknown) (unknown) (no (unknown) (unknown) Eyes (units (unkno wn) date) unknown) (unknown) (no (unknown) (unknown) Food can be (units (un known) date) disruptive right unknown) before sleep; stay away from large meals close to (unknown) (no (unknown) (unknown) GERD (units (unkno wn) date) (gastroesophageal unknown) reflux disease) (unknown) (no (unknown) (unknown) GI (units (unkno wn) date) unknown) (unknown) (no (unknown) (unknown) (units (unkno wn) date) unknown) (unknown) (no (unknown) (unknown) General: (units (unkno wn) date) cooperative and unknown) no acute distress (unknown) (no (unknown) (unknown) General: patient (units (unknown) date) alert, patient unknown) awake and patient oriented x3 (unknown) (no (unknown) (unknown) Get regular (units (un known) date) moderate exercise unknown) (30 minutes, 3x/week) (unknown) (no (unknown) (unknown) HENMT (units (unkno wn) date) unknown) (unknown) (no (unknown) (unknown) HPI Sleep Follow (units (unknown) date) Up unknown) (unknown) (no (unknown) (unknown) HPI (units (unkno wn) date) unknown) (unknown) (no (unknown) (unknown) Head: normal to (units (unknown) date) inspection unknown) (unknown) (no (unknown) (unknown) Hyperlipidemia (units (unknown) date) unknown) (unknown) (no (unknown) (unknown) Hypertension (units (u nknown) date) unknown) (unknown) (no (unknown) (unknown) Intake (units (unkno wn) date) unknown) (unknown) (no (unknown) (unknown) Light exposure (units (unknown) date) during the day unknown) helps maintain a healthy sleep-wake cycle. In (unknown) (no (unknown) (unknown) Loc: SLEEP (units (unk nown) date) unknown) (unknown) (no (unknown) (unknown) Make sure that (units ( unknown) date) the sleep unknown) environment is pleasant and relaxing. 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 (-12/29/20) (unknown) (no (unknown) (unknown) Mood: congruent (units (unknown) date) mood unknown) (unknown) (no (unknown) (unknown) Musc (units (unkno wn) date) unknown) (unknown) (no (unknown) (unknown) Neck (units (unkno wn) date) unknown) (unknown) (no (unknown) (unknown) Neck: normal (units (u nknown) date) visual inspection unknown) (unknown) (no (unknown) (unknown) Neuro (units (unkno wn) date) unknown) (unknown) (no (unknown) (unknown) Neurological (units (u nknown) date) unknown) (unknown) (no (unknown) (unknown) No Known Drug (units ( unknown) date) Allergies Allergy unknown) (Unverified 11/08/18 10:26) (unknown) (no (unknown) (unknown) Nutritional (units (un known) date) Appearance: unknown) average body habitus (unknown) (no (unknown) (unknown) Obstructive (units (un known) date) sleep apnea of unknown) adult (unknown) (no (unknown) (unknown) PFSH (units (unkno wn) date) unknown) (unknown) (no (unknown) (unknown) Patient (units (unkno wn) date) instructed to use unknown) scheduled naps as needed for drowsiness safety (unknown) (no (unknown) (unknown) Patient is on a (units (unknown) date) [employer] unknown) and is on nasal CPAP at 7-13 cwp and reports no (unknown) (no (unknown) (unknown) Patient reports (units (unknown) date) a history of unknown) snoring and a disturbed sleep pattern. There is (unknown) (no (unknown) (unknown) Patient reports (units (unknown) date) difficulty unknown) falling asleep is denied, difficulty staying asleep (unknown) (no (unknown) (unknown) Patient reports (units (unknown) date) symptoms of unknown) chronic insomnia for more than 3 months as evidenced (unknown) (no (unknown) (unknown) Patient was (units (un known) date) encouraged to unknown) continue PAP therapy at 7-15 cwp (unknown) (no (unknown) (unknown) Patient was (units (un known) date) encouraged to unknown) increase CPAP usage to a minimum of 4 hours a night, (unknown) (no (unknown) (unknown) Patient was (units (un known) date) instructed to unknown) avoid driving or operating heavy machinery when (unknown) (no (unknown) (unknown) Patient was (units (un known) date) instructed to unknown) return sooner if any questions or concerns arise. (unknown) (no (unknown) (unknown) Patient: (units (unkno wn) date) Jessica Caro E unknown) MR#: [id number] (unknown) (no (unknown) (unknown) Pertinent (units (unkn own) date) Positives/Negativ unknown) es (unknown) (no (unknown) (unknown) Plan (units (unkno wn) date) unknown) (unknown) (no (unknown) (unknown) Properly timed (units (unknown) date) exercise can unknown) promote good sleep. Vigorous exercise should be (unknown) (no (unknown) (unknown) Psych (units (unkno wn) date) unknown) (unknown) (no (unknown) (unknown) Psychological (units ( unknown) date) unknown) (unknown) (no (unknown) (unknown) ROS Sleep (units (unkn own) date) unknown) (unknown) (no (unknown) (unknown) Reason For Visit (units (unknown) date) unknown) (unknown) (no (unknown) (unknown) Reports morning (units (unknown) date) headache; Denies unknown) dizzy in the morning, vertigo or trouble (unknown) (no (unknown) (unknown) Reports nasal (units ( unknown) date) congestion at unknown) night and dry mouth in the morning; Denies runny (unknown) (no (unknown) (unknown) Reports nocturia (units (unknown) date) unknown) (unknown) (no (unknown) (unknown) Reports seasonal (units (unknown) date) allergies; Denies unknown) itchy eyes, redness or blurry vision (unknown) (no (unknown) (unknown) Resp (units (unkno wn) date) unknown) (unknown) (no (unknown) (unknown) Respiratory (units (un known) date) unknown) (unknown) (no (unknown) (unknown) Return visit in (units (unknown) date) 6 months to unknown) assess continued response to PAP therapy (unknown) (no (unknown) (unknown) Sclera: sclerae (units (unknown) date) normal unknown) (unknown) (no (unknown) (unknown) Signed By: (units (unk nown) date) unknown) (unknown) (no (unknown) (unknown) Sleep Schedule (units (unknown) date) Branch: unknown) consistent, daytime somnolence frequent, snoring not (unknown) (no (unknown) (unknown) Sleep Visit (units (un known) date) unknown) (unknown) (no (unknown) (unknown) [facility] unknown) (unknown) (no (unknown) (unknown) Smoking Status: (units (unknown) date) Never smoker unknown) (unknown) (no (unknown) (unknown) Social History (units (unknown) date) unknown) (unknown) (no (unknown) (unknown) Speech: speech (units (unknown) date) normal unknown) (unknown) (no (unknown) (unknown) Symptoms (units (unkno wn) date) unknown) (unknown) (no (unknown) (unknown) The patient (units (un known) date) reports symptoms unknown) of excessive daytime sleepiness as evidenced by (unknown) (no (unknown) (unknown) This can be seen (units (unknown) date) secondary to unknown) sleep apnea, depression, medical conditions or can (unknown) (no (unknown) (unknown) This note may (units ( unknown) date) have been all or unknown) partially generated using voice recognition (unknown) (no (unknown) (unknown) Tobacco + (units (unkn own) date) Substance Use unknown) (unknown) (no (unknown) (unknown) Tobacco Status (units (unknown) date) unknown) (unknown) (no (unknown) (unknown) Treatment (units (unkn own) date) Effects: Pap unknown) Treatment Response/Side Effects: adherent to current PAP (unknown) (no (unknown) (unknown) Treatment (units (unkn own) date) Response/Side unknown) Affects (unknown) (no (unknown) (unknown) Type 2 diabetes (units (unknown) date) mellitus unknown) (unknown) (no (unknown) (unknown) Usage: 100%, (units (u nknown) date) w/100% of that unknown) time > 4 hours. Leak: 14 sec flowAHI: 3.8 (unknown) (no (unknown) (unknown) Visit Reasons: (units (unknown) date) 6m unknown) (unknown) (no (unknown) (unknown) Visit type (FU): (units (unknown) date) follow up of RUTH unknown) therapy Follow up evaluation of RUTH therapy: (unknown) (no (unknown) (unknown) While alcohol is (units (unknown) date) well known to unknown) speed the onset of sleep, it disrupts sleep in (unknown) (no (unknown) (unknown) activities, you (units (unknown) date) may have more unknown) problems getting back to sleep during the night. (unknown) (no (unknown) (unknown) addition, (units (unkn own) date) avoiding unknown) nighttime bright light exposure, which can occur with many (unknown) (no (unknown) (unknown) also a history (units (unknown) date) of hypertension unknown) with a Mallampati score of IV. For this the (unknown) (no (unknown) (unknown) an [place] (units (unk nown) date) Sleepiness Score unknown) of 1224. Discussed symptoms and risks of (unknown) (no (unknown) (unknown) and wakefulness. (units (unknown) date) Scheduled napping unknown) may be considered if appropriate for the (unknown) (no (unknown) (unknown) appreciated, (units (u nknown) date) apnea not unknown) witnessed, choking or gasping Choking or Gasping Branch: (unknown) (no (unknown) (unknown) be an (units (unkno wn) date) independent unknown) problem. This has improved with more consolidated sleep and (unknown) (no (unknown) (unknown) bedtime. Also (units (u nknown) date) dietary changes unknown) can cause sleep problems, if someone is struggling (unknown) (no (unknown) (unknown) bothering her (units ( unknown) date) sleep is her unknown) 's snoring; it appears he stopped using his (unknown) (no (unknown) (unknown) bring your (units (unk nown) date) problems to bed. unknown) (unknown) (no (unknown) (unknown) but increased (units ( unknown) date) benefit from more unknown) usage was also explained. (unknown) (no (unknown) (unknown) by trouble (units (unk nown) date) falling asleep, unknown) trouble staying asleep and non-restorative sleep. (unknown) (no (unknown) (unknown) can be seen (units (un known) date) secondary to unknown) sleep apnea, insomnia, depression, medical conditions (unknown) (no (unknown) (unknown) caregiver/suppor (units (unknown) date) t person: No unknown) (unknown) (no (unknown) (unknown) comfortable, the (units (unknown) date) room should be unknown) quiet, not too hot or cold, or too bright. (unknown) (no (unknown) (unknown) concentrating or (units (unknown) date) focusing unknown) (unknown) (no (unknown) (unknown) congestion at (units ( unknown) date) night, reports unknown) dry mouth (when the is no water in the machine), (unknown) (no (unknown) (unknown) continued use of (units (unknown) date) PAP therapy. The unknown) patient is willing to continue with PAP (unknown) (no (unknown) (unknown) conversations (units ( unknown) date) and activities unknown) before trying to go to sleep. Don't dwell on, or (unknown) (no (unknown) (unknown) daytime sleeping (units (unknown) date) and an elevated unknown) [place] Sleepiness Scale score of 1124. This (unknown) (no (unknown) (unknown) denied (units (unkno wn) date) unknown) (unknown) (no (unknown) (unknown) denied, early (units ( unknown) date) morning awakening unknown) denied, spending time in bed not sleeping a (unknown) (no (unknown) (unknown) denied, epworth (units (unknown) date) sleep scale score unknown) (), bruxism Bruxism Branch: denied, sleep (unknown) (no (unknown) (unknown) denies night (units (u nknown) date) sweats, reports unknown) morning headache (migraines), reports nasal (unknown) (no (unknown) (unknown) denies sore (units (un known) date) throat in the unknown) morning, denies nocturnal cough, denies nocturnal (unknown) (no (unknown) (unknown) details: to (units (un known) date) Kristopher, lives in unknown) [place] (unknown) (no (unknown) (unknown) discuss OA for (units (unknown) date) travel. unknown) (unknown) (no (unknown) (unknown) dishes. And, (units (u nknown) date) remember, unknown) chocolate has caffeine. (unknown) (no (unknown) (unknown) dizziness in the (units (unknown) date) morning or denies unknown) trouble consentrating/foc using durng the day (unknown) (no (unknown) (unknown) done before bed (units (unknown) date) to help initiate unknown) a restful night's sleep. (unknown) (no (unknown) (unknown) drowsiness. (units (un known) date) unknown) (unknown) (no (unknown) (unknown) drowsy. (units (unkno wn) date) unknown) (unknown) (no (unknown) (unknown) given a list of (units (unknown) date) dentists who unknown) fabricate oral appliances. (unknown) (no (unknown) (unknown) have occurred. (units (unknown) date) If there are any unknown) questions, please contact the Medical Records (unknown) (no (unknown) (unknown) household (units (unkn own) date) members: spouse unknown) (unknown) (no (unknown) (unknown) housing: house (units (unknown) date) unknown) (unknown) (no (unknown) (unknown) including no (units (u nknown) date) snoring and no unknown) daytime sleepiness. Her compliance data indicates (unknown) (no (unknown) (unknown) listen to the (units ( unknown) date) radio, or read as unknown) if you associate falling asleep with these (unknown) (no (unknown) (unknown) little, normal (units ( unknown) date) bedtime unknown) (6440-7425), normal wake time (4463-0912), sleep schedule (unknown) (no (unknown) (unknown) lives (units (unkno wn) date) independently: unknown) Yes (unknown) (no (unknown) (unknown) marital status: (units (unknown) date) unknown) (unknown) (no (unknown) (unknown) may occur. (units (unk nown) date) Occasional unknown) wrong-word or 'sound-alike' substitutions may have (unknown) (no (unknown) (unknown) nose or sore (units (u nknown) date) throat in the unknown) morning (unknown) (no (unknown) (unknown) occurred due to (units (unknown) date) the inherent unknown) limitations of voice recognition software. Please (unknown) (no (unknown) (unknown) older people who (units (unknown) date) may not venture unknown) outside as frequently as children and adults. (unknown) (no (unknown) (unknown) on PAP well and (units (unknown) date) sleep quality unknown) well (unknown) (no (unknown) (unknown) optimal sleep (units ( unknown) date) schedule. unknown) (unknown) (no (unknown) (unknown) or can be a (units (unk nown) date) primary problem. unknown) This is unchanged today with a daytime sleeping and (unknown) (no (unknown) (unknown) palpitations, (units ( unknown) date) denies heart burn unknown) symptoms at night, reports nocturia, denies (unknown) (no (unknown) (unknown) paralysis (units (unkn own) date) unknown) (unknown) (no (unknown) (unknown) patient has been (units (unknown) date) on nasal CPAP unknown) therapy. Her machine was replaced in 2017 and is (unknown) (no (unknown) (unknown) personal (units (unkno wn) date) electronic unknown) devices, can also help maintain a healthy sleep-wake cycle. (unknown) (no (unknown) (unknown) problems with (units ( unknown) date) the pressure or unknown) the mask. She continues to use her machine (unknown) (no (unknown) (unknown) read the note (units ( unknown) date) carefully and unknown) recognize, using context, where these substitutions (unknown) (no (unknown) (unknown) regularly and (units ( unknown) date) clinical response unknown) to nasal CPAP, with an optimal flowAHI. She (unknown) (no (unknown) (unknown) reports no (units (unk nown) date) snoring and says unknown) she feels rested in the morning. She would like to (unknown) (no (unknown) (unknown) sentences, no (units ( unknown) date) audible wheezes unknown) and no cough (unknown) (no (unknown) (unknown) she reports she (units (unknown) date) feels she is unknown) sleeping well. Sleep hygiene has been reviewed. (unknown) (no (unknown) (unknown) software. (units (unkn own) date) Although every unknown) effort is made to edit content, manager report errors (unknown) (no (unknown) (unknown) taken in the (units (u nknown) date) morning or late unknown) afternoon. A relaxing exercise, like yoga, can be (unknown) (no (unknown) (unknown) talking Sleep (units ( unknown) date) Talking Branch: unknown) denied and sleep walking Sleep Walking Branch: (unknown) (no (unknown) (unknown) that her (units (unkno wn) date) pressure should unknown) be increased. It is clear she would benefit from the (unknown) (no (unknown) (unknown) the second half (units (unknown) date) as the body unknown) begins to metabolize the alcohol, causing arousal. (unknown) (no (unknown) (unknown) therapy. Patient (units (unknown) date) would also like unknown) to consider oral appliance therapy. She will be (unknown) (no (unknown) (unknown) therapy. She has (units (unknown) date) been doing well unknown) since last visit. She is reporting no problems (unknown) (no (unknown) (unknown) treatment stable (units (unknown) date) on treatment unknown) (unknown) (no (unknown) (unknown) weakness (units (unkno wn) date) associated with unknown) strong emotion or sleep paralysis (unknown) (no (unknown) (unknown) with a sleep (units (u nknown) date) problem, it's not unknown) a good time to start experimenting with spicy (unknown) (no (unknown) (unknown) with the (units (unkno wn) date) machine, mask or unknown) pressure. Mentions that the only thing really (unknown) (no (unknown) (unknown) working well. (units ( unknown) date) Patient's unknown) compliance is excellent with positive clinical response Result panel 3 (unknown) (no (unknown) (unknown) (no value) (units (unk nown) date) unknown) (unknown) (no (unknown) (unknown) (1) Obstructive (units (unknown) date) sleep apnea unknown) (adult) (pediatric): (unknown) (no (unknown) (unknown) (2) Excessive (units ( unknown) date) daytime unknown) sleepiness: (unknown) (no (unknown) (unknown) (3) Insomnia: (units ( unknown) date) unknown) (unknown) (no (unknown) (unknown) 0 = Would never (units (unknown) date) doze or sleep, 1 unknown) = Slight chance of dozing or sleeping, 2 = (unknown) (no (unknown) (unknown) [id number] (units (unkno wn) date) unknown) (unknown) (no (unknown) (unknown) 06/21/22 (units (unkno wn) date) unknown) (unknown) (no (unknown) (unknown) Adhere to (units (unkn own) date) regular mealtime unknown) schedule, avoid snacking (unknown) (no (unknown) (unknown) Affect: normal (units (unknown) date) affect unknown) (unknown) (no (unknown) (unknown) Age/Sex: 67 / F (units (unknown) date) Date of Service: unknown) (unknown) (no (unknown) (unknown) Jessica is here (units (unknown) date) for her 6-monthly unknown) visit to ensure stability with her PAP (unknown) (no (unknown) (unknown) Allergies (units (unkn own) date) unknown) (unknown) (no (unknown) (unknown) [place] (units ( unknown) date) [id number] unknown) (unknown) (no (unknown) (unknown) Assessment + (units (u nknown) date) Plan unknown) (unknown) (no (unknown) (unknown) Assessment and (units (unknown) date) Plan: unknown) (unknown) (no (unknown) (unknown) Associate your (units ( unknown) date) bed with sleep. unknown) It's not a good idea to use your bed to watch TV, (unknown) (no (unknown) (unknown) Attending Dr: (units ( unknown) date) Oral Perez MD unknown) (unknown) (no (unknown) (unknown) Attitude: (units (unkn own) date) cooperative unknown) (unknown) (no (unknown) (unknown) AutoCPAP Set (units (u nknown) date) Pressures: 7-13 unknown) cwp (unknown) (no (unknown) (unknown) Avoid alcohol (units ( unknown) date) after 4 pm unknown) (unknown) (no (unknown) (unknown) Avoid (units (unkno wn) date) medications which unknown) may interfere with sleep (unknown) (no (unknown) (unknown) Avoid random (units (u nknown) date) napping during unknown) the day; it can disturb the normal pattern of sleep (unknown) (no (unknown) (unknown) Avoid stimulants (units (unknown) date) such as caffeine, unknown) nicotine, and alcohol too close to bedtime. 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 (unknown) (no (unknown) (unknown) Cardiac (units (unkno wn) date) unknown) (unknown) (no (unknown) (unknown) Chief Complaint: (units (unknown) date) Patient is here unknown) to follow up on therapy for RUTH (unknown) (no (unknown) (unknown) Clinical Course (units (unknown) date) unknown) (unknown) (no (unknown) (unknown) Cognition: (units (unk nown) date) normal cognition unknown) (unknown) (no (unknown) (unknown) Condition is (units (u nknown) date) Onset: Chronic unknown) and ongoing condition (unknown) (no (unknown) (unknown) Conjunctivae: (units ( unknown) date) conjunctivae unknown) normal (unknown) (no (unknown) (unknown) Consider weaning (units (unknown) date) caffeine use, unknown) starting with no caffeine after 3pm (unknown) (no (unknown) (unknown) Const (units (unkno wn) date) unknown) (unknown) (no (unknown) (unknown) : 1955 (units (unknown) date) Acct:[id number] unknown) (unknown) (no (unknown) (unknown) Denies chest (units (u nknown) date) pain or nocturnal unknown) palpitations (unknown) (no (unknown) (unknown) Denies dyspnea (units (unknown) date) at night or cough unknown) (unknown) (no (unknown) (unknown) Denies myalgia (units (unknown) date) interfering with unknown) sleep, arthralgia interfering with sleep, (unknown) (no (unknown) (unknown) Denies reflux (units ( unknown) date) pain at night or unknown) bloating on CPAP (unknown) (no (unknown) (unknown) Denies snoring (units (unknown) date) and Denies stops unknown) breathing during sleep (unknown) (no (unknown) (unknown) Depression (units (unk nown) date) unknown) (unknown) (no (unknown) (unknown) Dept at (units (unkno wn) date) . unknown) (unknown) (no (unknown) (unknown) Details: (units (unkno wn) date) unknown) (unknown) (no (unknown) (unknown) Device data last (units (unknown) date) 30 days: unknown) (unknown) (no (unknown) (unknown) Documented By: (units (unknown) date) Oral Perez MD unknown) 06/21/22 1547 (unknown) (no (unknown) (unknown) Draft (units (unkno wn) date) unknown) (unknown) (no (unknown) (unknown) Drowsy driving (units (unknown) date) handout made unknown) available. (unknown) (no (unknown) (unknown) ENT (units (unkno wn) date) unknown) (unknown) (no (unknown) (unknown) Ears: hearing (units ( unknown) date) grossly normal unknown) bilaterally and external ears normal (unknown) (no (unknown) (unknown) Effort + (units (unkno wn) date) Inspection: unknown) normal respiratory effort, able to speak in complete (unknown) (no (unknown) (unknown) Ensure adequate (units (unknown) date) exposure to unknown) natural light. This is particularly important for (unknown) (no (unknown) (unknown) Chetek Score: (units (unknown) date) 15 unknown) (unknown) (no (unknown) (unknown) Chetek (units (unkno wn) date) Sleepiness Scale unknown) (unknown) (no (unknown) (unknown) Establish a (units (unk n) date) regular relaxing unknown) bedtime routine. Try to avoid emotionally upsetting (unknown) (no (unknown) (unknown) Exam Narrative (units (unknown) date) unknown) (unknown) (no (unknown) (unknown) Exam Narrative: (units (unknown) date) unknown) (unknown) (no (unknown) (unknown) Exam (units (unkno wn) date) unknown) (unknown) (no (unknown) (unknown) Eyes (units (unkno wn) date) unknown) (unknown) (no (unknown) (unknown) Food can be (units (un known) date) disruptive right unknown) before sleep; stay away from large meals close to (unknown) (no (unknown) (unknown) GERD (units (unkno wn) date) (gastroesophageal unknown) reflux disease) (unknown) (no (unknown) (unknown) GI (units (unkno wn) date) unknown) (unknown) (no (unknown) (unknown) (units (unkno wn) date) unknown) (unknown) (no (unknown) (unknown) General: (units (unkno wn) date) cooperative and unknown) no acute distress (unknown) (no (unknown) (unknown) General: patient (units (unknown) date) alert, patient unknown) awake and patient oriented x3 (unknown) (no (unknown) (unknown) Get regular (units (un known) date) moderate exercise unknown) (30 minutes, 3x/week) (unknown) (no (unknown) (unknown) HENMT (units (unkno wn) date) unknown) (unknown) (no (unknown) (unknown) HPI Sleep Follow (units (unknown) date) Up unknown) (unknown) (no (unknown) (unknown) HPI (units (unkno wn) date) unknown) (unknown) (no (unknown) (unknown) Head: normal to (units (unknown) date) inspection unknown) (unknown) (no (unknown) (unknown) Hyperlipidemia (units (unknown) date) unknown) (unknown) (no (unknown) (unknown) Hypertension (units (u nknown) date) unknown) (unknown) (no (unknown) (unknown) Intake (units (unkno wn) date) unknown) (unknown) (no (unknown) (unknown) Light exposure (units (unknown) date) during the day unknown) helps maintain a healthy sleep-wake cycle. In (unknown) (no (unknown) (unknown) Loc: SLEEP (units (unk nown) date) unknown) (unknown) (no (unknown) (unknown) Lying down in (units ( unknown) date) the afternoon: 3 unknown) = High (unknown) (no (unknown) (unknown) Make sure that (units ( unknown) date) the sleep unknown) environment is pleasant and relaxing. 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 (-12/29/20) (unknown) (no (unknown) (unknown) Moderate chance (units (unknown) date) of dozing or unknown) sleeping, 3 = High chance of dozing or sleeping (unknown) (no (unknown) (unknown) Mood: congruent (units (unknown) date) mood unknown) (unknown) (no (unknown) (unknown) Musc (units (unkno wn) date) unknown) (unknown) (no (unknown) (unknown) Neck (units (unkno wn) date) unknown) (unknown) (no (unknown) (unknown) Neck: normal (units (u nknown) date) visual inspection unknown) (unknown) (no (unknown) (unknown) Neuro (units (unkno wn) date) unknown) (unknown) (no (unknown) (unknown) Neurological (units (u nknown) date) unknown) (unknown) (no (unknown) (unknown) No Known Drug (units ( unknown) date) Allergies Allergy unknown) (Unverified 11/08/18 10:26) (unknown) (no (unknown) (unknown) Nutritional (units (un known) date) Appearance: unknown) average body habitus (unknown) (no (unknown) (unknown) Obstructive (units (un known) date) sleep apnea of unknown) adult (unknown) (no (unknown) (unknown) PFSH (units (unkno wn) date) unknown) (unknown) (no (unknown) (unknown) Patient (units (unkno wn) date) instructed to use unknown) scheduled naps as needed for drowsiness safety (unknown) (no (unknown) (unknown) Patient is on a (units (unknown) date) [employer] unknown) and is on nasal CPAP at 7-13 cwp and reports no (unknown) (no (unknown) (unknown) Patient reports (units (unknown) date) a history of unknown) snoring and a disturbed sleep pattern. There is (unknown) (no (unknown) (unknown) Patient reports (units (unknown) date) difficulty unknown) falling asleep is denied, difficulty staying asleep (unknown) (no (unknown) (unknown) Patient reports (units (unknown) date) symptoms of unknown) chronic insomnia for more than 3 months as evidenced (unknown) (no (unknown) (unknown) Patient was (units (un known) date) encouraged to unknown) continue PAP therapy at 7-15 cwp (unknown) (no (unknown) (unknown) Patient was (units (un known) date) encouraged to unknown) increase CPAP usage to a minimum of 4 hours a night, (unknown) (no (unknown) (unknown) Patient was (units (un known) date) instructed to unknown) avoid driving or operating heavy machinery when (unknown) (no (unknown) (unknown) Patient was (units (un known) date) instructed to unknown) return sooner if any questions or concerns arise. (unknown) (no (unknown) (unknown) Patient: (units (unkno wn) date) Jessica Caro E unknown) MR#: [id number] (unknown) (no (unknown) (unknown) Pertinent (units (unkn own) date) Positives/Negativ unknown) es (unknown) (no (unknown) (unknown) Plan (units (unkno wn) date) unknown) (unknown) (no (unknown) (unknown) Properly timed (units (unknown) date) exercise can unknown) promote good sleep. Vigorous exercise should be (unknown) (no (unknown) (unknown) Psych (units (unkno wn) date) unknown) (unknown) (no (unknown) (unknown) Psychological (units ( unknown) date) unknown) (unknown) (no (unknown) (unknown) Questionnaires (units (unknown) date) unknown) (unknown) (no (unknown) (unknown) ROS Sleep (units (unkn own) date) unknown) (unknown) (no (unknown) (unknown) Reason For Visit (units (unknown) date) unknown) (unknown) (no (unknown) (unknown) Reports morning (units (unknown) date) headache; Denies unknown) dizzy in the morning, vertigo or trouble (unknown) (no (unknown) (unknown) Reports napping (units (unknown) date) on a regular unknown) basis; Denies depression, anxiety, hypnagogic (unknown) (no (unknown) (unknown) Reports nasal (units ( unknown) date) congestion at unknown) night and dry mouth in the morning; Denies runny (unknown) (no (unknown) (unknown) Reports nocturia (units (unknown) date) unknown) (unknown) (no (unknown) (unknown) Reports seasonal (units (unknown) date) allergies; Denies unknown) itchy eyes, redness or blurry vision (unknown) (no (unknown) (unknown) Resp (units (unkno wn) date) unknown) (unknown) (no (unknown) (unknown) Respiratory (units (un known) date) unknown) (unknown) (no (unknown) (unknown) Return visit in (units (unknown) date) 6 months to unknown) assess continued response to PAP therapy (unknown) (no (unknown) (unknown) Sclera: sclerae (units (unknown) date) normal unknown) (unknown) (no (unknown) (unknown) Signed By: (units (unk nown) date) unknown) (unknown) (no (unknown) (unknown) Sitting and (units (un known) date) Readin = unknown) Moderate (unknown) (no (unknown) (unknown) Sitting and (units (un known) date) talking to unknown) someone: 0 = Never (None) (unknown) (no (unknown) (unknown) Sitting inactive (units (unknown) date) in a public unknown) place: 1 = Slight (unknown) (no (unknown) (unknown) Sitting quietly (units (unknown) date) after lunch (no unknown) alcohol): 3 = High (unknown) (no (unknown) (unknown) Sleep Schedule (units (unknown) date) Branch: unknown) consistent, daytime somnolence frequent, snoring not (unknown) (no (unknown) (unknown) Sleep Visit (units (un known) date) unknown) (unknown) (no (unknown) (unknown) [facility] unknown) (unknown) (no (unknown) (unknown) Smoking Status: (units (unknown) date) Never smoker unknown) (unknown) (no (unknown) (unknown) Social History (units (unknown) date) unknown) (unknown) (no (unknown) (unknown) Speech: speech (units (unknown) date) normal unknown) (unknown) (no (unknown) (unknown) Stopped for a (units ( unknown) date) few minutes in unknown) traffic: 0 = Never (None) (unknown) (no (unknown) (unknown) Symptoms (units (unkno wn) date) unknown) (unknown) (no (unknown) (unknown) The patient (units (un known) date) reports symptoms unknown) of excessive daytime sleepiness as evidenced by (unknown) (no (unknown) (unknown) This can be seen (units (unknown) date) secondary to unknown) sleep apnea, depression, medical conditions or can (unknown) (no (unknown) (unknown) This note may (units ( unknown) date) have been all or unknown) partially generated using voice recognition (unknown) (no (unknown) (unknown) Tobacco + (units (unkn own) date) Substance Use unknown) (unknown) (no (unknown) (unknown) Tobacco Status (units (unknown) date) unknown) (unknown) (no (unknown) (unknown) Treatment (units (unkn own) date) Effects: Pap unknown) Treatment Response/Side Effects: adherent to current PAP (unknown) (no (unknown) (unknown) Treatment (units (unkn own) date) Response/Side unknown) Affects (unknown) (no (unknown) (unknown) Type 2 diabetes (units (unknown) date) mellitus unknown) (unknown) (no (unknown) (unknown) Usage: 100%, (units (u nknown) date) w/100% of that unknown) time > 4 hours. Leak: 14 sec flowAHI: 3.8 (unknown) (no (unknown) (unknown) Visit Reasons: (units (unknown) date) 6m unknown) (unknown) (no (unknown) (unknown) Visit type (FU): (units (unknown) date) follow up of RUTH unknown) therapy Follow up evaluation of RUTH therapy: (unknown) (no (unknown) (unknown) Watching TV: 3 = (units (unknown) date) High unknown) (unknown) (no (unknown) (unknown) While alcohol is (units (unknown) date) well known to unknown) speed the onset of sleep, it disrupts sleep in (unknown) (no (unknown) (unknown) activities, you (units (unknown) date) may have more unknown) problems getting back to sleep during the night. (unknown) (no (unknown) (unknown) addition, (units (unkn own) date) avoiding unknown) nighttime bright light exposure, which can occur with many (unknown) (no (unknown) (unknown) also a history (units (unknown) date) of hypertension unknown) with a Mallampati score of IV. For this the (unknown) (no (unknown) (unknown) an Chetek (units (unk nown) date) Sleepiness Score unknown) of 12/24. Discussed symptoms and risks of (unknown) (no (unknown) (unknown) and wakefulness. (units (unknown) date) Scheduled napping unknown) may be considered if appropriate for the (unknown) (no (unknown) (unknown) appreciated, (units (u nknown) date) apnea not unknown) witnessed, choking or gasping Choking or Gasping Branch: (unknown) (no (unknown) (unknown) be an (units (unkno wn) date) independent unknown) problem. This has improved with more consolidated sleep and (unknown) (no (unknown) (unknown) bedtime. Also (units (u nknown) date) dietary changes unknown) can cause sleep problems, if someone is struggling (unknown) (no (unknown) (unknown) been an issue (units ( unknown) date) just since the unknown) new machine. She is falling asleep during the day (unknown) (no (unknown) (unknown) been getting (units (un known) date) headaches in the unknown) morning, which interferes with her usage. This has (unknown) (no (unknown) (unknown) bothering her (units ( unknown) date) sleep is her unknown) 's snoring; it appears he stopped using his (unknown) (no (unknown) (unknown) bring your (units (unk nown) date) problems to bed. unknown) (unknown) (no (unknown) (unknown) but increased (units ( unknown) date) benefit from more unknown) usage was also explained. (unknown) (no (unknown) (unknown) by trouble (units (unk nown) date) falling asleep, unknown) trouble staying asleep and non-restorative sleep. (unknown) (no (unknown) (unknown) can be seen (units (un known) date) secondary to unknown) sleep apnea, insomnia, depression, medical conditions (unknown) (no (unknown) (unknown) caregiver/suppor (units (unknown) date) t person: No unknown) (unknown) (no (unknown) (unknown) comfortable, the (units (unknown) date) room should be unknown) quiet, not too hot or cold, or too bright. (unknown) (no (unknown) (unknown) concentrating or (units (unknown) date) focusing unknown) (unknown) (no (unknown) (unknown) congestion at (units ( unknown) date) night, reports unknown) dry mouth (when the is no water in the machine), (unknown) (no (unknown) (unknown) continued use of (units (unknown) date) PAP therapy. The unknown) patient is willing to continue with PAP (unknown) (no (unknown) (unknown) conversations (units ( unknown) date) and activities unknown) before trying to go to sleep. Don't dwell on, or (unknown) (no (unknown) (unknown) daytime sleeping (units (unknown) date) and an elevated unknown) Chetek Sleepiness Scale score of 11/24. This (unknown) (no (unknown) (unknown) denied (units (unkno wn) date) unknown) (unknown) (no (unknown) (unknown) denied, early (units ( unknown) date) morning awakening unknown) denied, spending time in bed not sleeping a (unknown) (no (unknown) (unknown) denied, epworth (units (unknown) date) sleep scale score unknown) (), bruxism Bruxism Branch: denied, sleep (unknown) (no (unknown) (unknown) denies night (units (u nknown) date) sweats, reports unknown) morning headache (migraines), reports nasal (unknown) (no (unknown) (unknown) denies sore (units (un known) date) throat in the unknown) morning, denies nocturnal cough, denies nocturnal (unknown) (no (unknown) (unknown) details: to (units (un known) date) Kristopher, lives in unknown) [place] (unknown) (no (unknown) (unknown) dishes. And, (units (u nknown) date) remember, unknown) chocolate has caffeine. (unknown) (no (unknown) (unknown) dizziness in the (units (unknown) date) morning or denies unknown) trouble consentrating/foc using durng the day (unknown) (no (unknown) (unknown) done before bed (units (unknown) date) to help initiate unknown) a restful night's sleep. (unknown) (no (unknown) (unknown) drowsiness. (units (un known) date) unknown) (unknown) (no (unknown) (unknown) drowsy. (units (unkno wn) date) unknown) (unknown) (no (unknown) (unknown) given a list of (units (unknown) date) dentists who unknown) fabricate oral appliances. (unknown) (no (unknown) (unknown) hallucinations (units (unknown) date) or sleep unknown) paralysis (unknown) (no (unknown) (unknown) have occurred. (units (unknown) date) If there are any unknown) questions, please contact the Medical Records (unknown) (no (unknown) (unknown) household (units (unkn own) date) members: spouse unknown) (unknown) (no (unknown) (unknown) housing: house (units (unknown) date) unknown) (unknown) (no (unknown) (unknown) including no (units (u nknown) date) snoring and no unknown) daytime sleepiness. Her compliance data indicates (unknown) (no (unknown) (unknown) listen to the (units ( unknown) date) radio, or read as unknown) if you associate falling asleep with these (unknown) (no (unknown) (unknown) little, normal (units ( unknown) date) bedtime unknown) ([id number]), normal wake time ([id number]), sleep schedule (unknown) (no (unknown) (unknown) lives (units (unkno wn) date) independently: unknown) Yes (unknown) (no (unknown) (unknown) marital status: (units (unknown) date) unknown) (unknown) (no (unknown) (unknown) may occur. (units (unk nown) date) Occasional unknown) wrong-word or 'sound-alike' substitutions may have (unknown) (no (unknown) (unknown) nose or sore (units (u nknown) date) throat in the unknown) morning (unknown) (no (unknown) (unknown) occurred due to (units (unknown) date) the inherent unknown) limitations of voice recognition software. Please (unknown) (no (unknown) (unknown) older people who (units (unknown) date) may not venture unknown) outside as frequently as children and adults. (unknown) (no (unknown) (unknown) on PAP well and (units (unknown) date) sleep quality unknown) well (unknown) (no (unknown) (unknown) optimal sleep (units ( unknown) date) schedule. unknown) (unknown) (no (unknown) (unknown) or can be a (units (unk nown) date) primary problem. unknown) This is unchanged today with a daytime sleeping and (unknown) (no (unknown) (unknown) palpitations, (units ( unknown) date) reports heart unknown) burn symptoms at night, reports nocturia, denies (unknown) (no (unknown) (unknown) patient has been (units (unknown) date) on nasal CPAP unknown) therapy. Her machine was replaced in 2017 and is (unknown) (no (unknown) (unknown) personal (units (unkno wn) date) electronic unknown) devices, can also help maintain a healthy sleep-wake cycle. (unknown) (no (unknown) (unknown) problems with (units ( unknown) date) the pressure or unknown) the mask. She continues to use her machine (unknown) (no (unknown) (unknown) read the note (units ( unknown) date) carefully and unknown) recognize, using context, where these substitutions (unknown) (no (unknown) (unknown) regularly and (units ( unknown) date) clinical response unknown) to nasal CPAP, with an optimal flowAHI. She (unknown) (no (unknown) (unknown) reports no (units (unk nown) date) snoring but is unknown) not feeling as rested in the morning. She would like (unknown) (no (unknown) (unknown) sentences, no (units ( unknown) date) audible wheezes unknown) and no cough (unknown) (no (unknown) (unknown) she reports she (units (unknown) date) feels she is unknown) sleeping well. Sleep hygiene has been reviewed. (unknown) (no (unknown) (unknown) since the new (units ( unknown) date) machine. unknown) (unknown) (no (unknown) (unknown) software. (units (unkn own) date) Although every unknown) effort is made to edit content, manager report errors (unknown) (no (unknown) (unknown) taken in the (units (u nknown) date) morning or late unknown) afternoon. A relaxing exercise, like yoga, can be (unknown) (no (unknown) (unknown) talking Sleep (units ( unknown) date) Talking Branch: unknown) denied and sleep walking Sleep Walking Branch: (unknown) (no (unknown) (unknown) that her (units (unkno wn) date) pressure should unknown) be increased. It is clear she would benefit from the (unknown) (no (unknown) (unknown) the second half (units (unknown) date) as the body unknown) begins to metabolize the alcohol, causing arousal. (unknown) (no (unknown) (unknown) therapy. Patient (units (unknown) date) would also like unknown) to consider oral appliance therapy. She will be (unknown) (no (unknown) (unknown) therapy. She has (units (unknown) date) been doing well unknown) since last visit. She is reporting no problems (unknown) (no (unknown) (unknown) to discuss OA (units ( unknown) date) for travel. She unknown) stopped using her machine for a month. She has (unknown) (no (unknown) (unknown) treatment stable (units (unknown) date) on treatment unknown) (unknown) (no (unknown) (unknown) weakness (units (unkno wn) date) associated with unknown) strong emotion or sleep paralysis (unknown) (no (unknown) (unknown) with a sleep (units (u nknown) date) problem, it's not unknown) a good time to start experimenting with spicy (unknown) (no (unknown) (unknown) with the (units (unkno wn) date) machine, mask or unknown) pressure. Mentions that the only thing really (unknown) (no (unknown) (unknown) working well. (units ( unknown) date) Patient's unknown) compliance is excellent with positive clinical response Result panel 4 (unknown) (no (unknown) (unknown) (no value) (units (unk nown) date) unknown) (unknown) (no (unknown) (unknown) (1) Obstructive (units (unknown) date) sleep apnea unknown) (adult) (pediatric): (unknown) (no (unknown) (unknown) (2) Excessive (units ( unknown) date) daytime unknown) sleepiness: (unknown) (no (unknown) (unknown) (3) Insomnia: (units ( unknown) date) unknown) (unknown) (no (unknown) (unknown) 0 = Would never (units (unknown) date) doze or sleep, 1 unknown) = Slight chance of dozing or sleeping, 2 = (unknown) (no (unknown) (unknown) [id number] (units (unkno wn) date) unknown) (unknown) (no (unknown) (unknown) 06/21/22 1810 (units ( unknown) date) unknown) (unknown) (no (unknown) (unknown) 06/21/22 (units (unkno wn) date) unknown) (unknown) (no (unknown) (unknown) 16:02 (units (unkno wn) date) unknown) (unknown) (no (unknown) (unknown) AHIflow with (units (u nknown) date) positive clinical unknown) response including no snoring and no daytime (unknown) (no (unknown) (unknown) Adhere to (units (unkn own) date) regular mealtime unknown) schedule, avoid snacking (unknown) (no (unknown) (unknown) Affect: normal (units (unknown) date) affect unknown) (unknown) (no (unknown) (unknown) Age/Sex: 67 / F (units (unknown) date) Date of Service: unknown) (unknown) (no (unknown) (unknown) Jessica is here (units (unknown) date) for her 6-monthly unknown) visit to ensure stability with her PAP (unknown) (no (unknown) (unknown) Allergies (units (unkn own) date) unknown) (unknown) (no (unknown) (unknown) [place], MAAME (units ( unknown) date) [id number] unknown) (unknown) (no (unknown) (unknown) Assessment + (units (u nknown) date) Plan unknown) (unknown) (no (unknown) (unknown) Assessment and (units (unknown) date) Plan: unknown) (unknown) (no (unknown) (unknown) Associate your (units ( unknown) date) bed with sleep. unknown) It's not a good idea to use your bed to watch TV, (unknown) (no (unknown) (unknown) Attending Dr: (units ( unknown) date) Oral Perez MD unknown) (unknown) (no (unknown) (unknown) Attitude: (units (unkn own) date) cooperative unknown) (unknown) (no (unknown) (unknown) AutoCPAP Set (units (u nknown) date) Pressures: 7-13 unknown) cwp (unknown) (no (unknown) (unknown) Avoid alcohol (units ( unknown) date) after 4 pm unknown) (unknown) (no (unknown) (unknown) Avoid (units (unkno wn) date) medications which unknown) may interfere with sleep (unknown) (no (unknown) (unknown) Avoid random (units (u nknown) date) napping during unknown) the day; it can disturb the normal pattern of sleep (unknown) (no (unknown) (unknown) Avoid stimulants (units (unknown) date) such as caffeine, unknown) nicotine, and alcohol too close to bedtime. (unknown) (no (unknown) (unknown) BMI 21.7 (units (unkno wn) date) unknown) (unknown) (no (unknown) (unknown) BP 119/82 (units (unkn own) date) unknown) (unknown) (no (unknown) (unknown) Being a (units (unkno wn) date) passenger in a unknown) motor vehicle for an hour or so: 3 = High (unknown) (no (unknown) (unknown) Blood Pressure (units (unknown) date) Location Lt unknown) brachial (unknown) (no (unknown) (unknown) CPAP (7-13 cwp) (units (unknown) date) unknown) (unknown) (no (unknown) (unknown) CPAP, and will (units (unknown) date) not come in for unknown) adjustments. (unknown) (no (unknown) (unknown) Cardiac (units (unkno wn) date) unknown) (unknown) (no (unknown) (unknown) Chief Complaint: (units (unknown) date) Patient is here unknown) to follow up on therapy for RUTH (unknown) (no (unknown) (unknown) Clinical Course (units (unknown) date) unknown) (unknown) (no (unknown) (unknown) Cognition: (units (unk nown) date) normal cognition unknown) (unknown) (no (unknown) (unknown) Condition is (units (u nknown) date) Onset: Chronic unknown) and ongoing condition (unknown) (no (unknown) (unknown) Conjunctivae: (units ( unknown) date) conjunctivae unknown) normal (unknown) (no (unknown) (unknown) Consider weaning (units (unknown) date) caffeine use, unknown) starting with no caffeine after 3pm (unknown) (no (unknown) (unknown) Const (units (unkno wn) date) unknown) (unknown) (no (unknown) (unknown) : 1955 (units (unknown) date) Acct:[id number] unknown) (unknown) (no (unknown) (unknown) Denies chest (units (u nknown) date) pain or nocturnal unknown) palpitations (unknown) (no (unknown) (unknown) Denies dyspnea (units (unknown) date) at night or cough unknown) (unknown) (no (unknown) (unknown) Denies myalgia (units (unknown) date) interfering with unknown) sleep, arthralgia interfering with sleep, (unknown) (no (unknown) (unknown) Denies reflux (units ( unknown) date) pain at night or unknown) bloating on CPAP (unknown) (no (unknown) (unknown) Denies snoring (units (unknown) date) and Denies stops unknown) breathing during sleep (unknown) (no (unknown) (unknown) Depression (units (unk nown) date) unknown) (unknown) (no (unknown) (unknown) Dept at (units (unkno wn) date) . unknown) (unknown) (no (unknown) (unknown) Details: (units (unkno wn) date) unknown) (unknown) (no (unknown) (unknown) Device data last (units (unknown) date) 90 days: unknown) (unknown) (no (unknown) (unknown) Documented By: (units (unknown) date) Oral Perez MD unknown) 06/21/22 1547 (unknown) (no (unknown) (unknown) Drowsy driving (units (unknown) date) handout made unknown) available. (unknown) (no (unknown) (unknown) ENT (units (unkno wn) date) unknown) (unknown) (no (unknown) (unknown) Ears: hearing (units ( unknown) date) grossly normal unknown) bilaterally and external ears normal (unknown) (no (unknown) (unknown) Effort + (units (unkno wn) date) Inspection: unknown) normal respiratory effort, able to speak in complete (unknown) (no (unknown) (unknown) Ensure adequate (units (unknown) date) exposure to unknown) natural light. This is particularly important for (unknown) (no (unknown) (unknown) Chetek Score: (units (unknown) date) 15 unknown) (unknown) (no (unknown) (unknown) Chetek (units (unkno wn) date) Sleepiness Scale unknown) (unknown) (no (unknown) (unknown) Establish a (units (unk nown) date) regular relaxing unknown) bedtime routine. Try to avoid emotionally upsetting (unknown) (no (unknown) (unknown) Exam Narrative (units (unknown) date) unknown) (unknown) (no (unknown) (unknown) Exam Narrative: (units (unknown) date) unknown) (unknown) (no (unknown) (unknown) Exam (units (unkno wn) date) unknown) (unknown) (no (unknown) (unknown) Eyes (units (unkno wn) date) unknown) (unknown) (no (unknown) (unknown) Food can be (units (un known) date) disruptive right unknown) before sleep; stay away from large meals close to (unknown) (no (unknown) (unknown) GERD (units (unkno wn) date) (gastroesophageal unknown) reflux disease) (unknown) (no (unknown) (unknown) GI (units (unkno wn) date) unknown) (unknown) (no (unknown) (unknown) (units (unkno wn) date) unknown) (unknown) (no (unknown) (unknown) General: (units (unkno wn) date) cooperative and unknown) no acute distress (unknown) (no (unknown) (unknown) General: patient (units (unknown) date) alert, patient unknown) awake and patient oriented x3 (unknown) (no (unknown) (unknown) Get regular (units (un known) date) moderate exercise unknown) (30 minutes, 3x/week) (unknown) (no (unknown) (unknown) HENMT (units (unkno wn) date) unknown) (unknown) (no (unknown) (unknown) HPI Sleep Follow (units (unknown) date) Up unknown) (unknown) (no (unknown) (unknown) HPI (units (unkno wn) date) unknown) (unknown) (no (unknown) (unknown) Head: normal to (units (unknown) date) inspection unknown) (unknown) (no (unknown) (unknown) Height 154.94 cm (units (unknown) date) unknown) (unknown) (no (unknown) (unknown) Hyperlipidemia (units (unknown) date) unknown) (unknown) (no (unknown) (unknown) Hypertension (units (u nknown) date) unknown) (unknown) (no (unknown) (unknown) Insomnia type: (units (unknown) date) unspecified unknown) Qualified Code(s): G47.00 - Insomnia, (unknown) (no (unknown) (unknown) Intake (units (unkno wn) date) unknown) (unknown) (no (unknown) (unknown) Light exposure (units (unknown) date) during the day unknown) helps maintain a healthy sleep-wake cycle. In (unknown) (no (unknown) (unknown) Loc: SLEEP (units (unk nown) date) unknown) (unknown) (no (unknown) (unknown) Lying down in (units ( unknown) date) the afternoon: 3 unknown) = High (unknown) (no (unknown) (unknown) Make sure that (units ( unknown) date) the sleep unknown) environment is pleasant and relaxing. 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 (-12/29/20) (unknown) (no (unknown) (unknown) Moderate chance (units (unknown) date) of dozing or unknown) sleeping, 3 = High chance of dozing or sleeping (unknown) (no (unknown) (unknown) Mood: congruent (units (unknown) date) mood unknown) (unknown) (no (unknown) (unknown) Musc (units (unkno wn) date) unknown) (unknown) (no (unknown) (unknown) Neck (units (unkno wn) date) unknown) (unknown) (no (unknown) (unknown) Neck: normal (units (u nknown) date) visual inspection unknown) (unknown) (no (unknown) (unknown) Neuro (units (unkno wn) date) unknown) (unknown) (no (unknown) (unknown) Neurological (units (u nknown) date) unknown) (unknown) (no (unknown) (unknown) No Known Drug (units ( unknown) date) Allergies Allergy unknown) (Unverified 11/08/18 10:26) (unknown) (no (unknown) (unknown) Nutritional (units (un known) date) Appearance: unknown) average body habitus (unknown) (no (unknown) (unknown) Obstructive (units (un known) date) sleep apnea of unknown) adult (unknown) (no (unknown) (unknown) PFSH (units (unkno wn) date) unknown) (unknown) (no (unknown) (unknown) Patient (units (unkno wn) date) instructed to use unknown) scheduled naps as needed for drowsiness safety (unknown) (no (unknown) (unknown) Patient is on a (units (unknown) date) [employer] unknown) and is on nasal CPAP at 7-13 cwp and reports no (unknown) (no (unknown) (unknown) Patient reports (units (unknown) date) a history of unknown) snoring and a disturbed sleep pattern. There is (unknown) (no (unknown) (unknown) Patient reports (units (unknown) date) difficulty unknown) falling asleep is denied, difficulty staying asleep (unknown) (no (unknown) (unknown) Patient reports (units (unknown) date) symptoms of unknown) chronic insomnia for more than 3 months as evidenced (unknown) (no (unknown) (unknown) Patient was (units (un known) date) encouraged to unknown) increase CPAP usage to a minimum of 4 hours a night, (unknown) (no (unknown) (unknown) Patient was (units (un known) date) instructed to unknown) avoid driving or operating heavy machinery when (unknown) (no (unknown) (unknown) Patient was (units (un known) date) instructed to unknown) return sooner if any questions or concerns arise. (unknown) (no (unknown) (unknown) Patient was (units (un known) date) prescribed PAP unknown) therapy at 7-13 cwp (unknown) (no (unknown) (unknown) Patient: (units (unkno wn) date) James Carocia E unknown) MR#: [id number] (unknown) (no (unknown) (unknown) Pertinent (units (unkn own) date) Positives/Negativ unknown) es (unknown) (no (unknown) (unknown) Plan (units (unkno wn) date) unknown) (unknown) (no (unknown) (unknown) Position Sitting (units (unknown) date) unknown) (unknown) (no (unknown) (unknown) Properly timed (units (unknown) date) exercise can unknown) promote good sleep. Vigorous exercise should be (unknown) (no (unknown) (unknown) Psych (units (unkno wn) date) unknown) (unknown) (no (unknown) (unknown) Psychological (units ( unknown) date) unknown) (unknown) (no (unknown) (unknown) Pulse 76 (units (unkno wn) date) unknown) (unknown) (no (unknown) (unknown) Qualifiers: (units (un known) date) unknown) (unknown) (no (unknown) (unknown) Questionnaires (units (unknown) date) unknown) (unknown) (no (unknown) (unknown) ROS Sleep (units (unkn own) date) unknown) (unknown) (no (unknown) (unknown) Reason For Visit (units (unknown) date) unknown) (unknown) (no (unknown) (unknown) Reports morning (units (unknown) date) headache; Denies unknown) dizzy in the morning, vertigo or trouble (unknown) (no (unknown) (unknown) Reports napping (units (unknown) date) on a regular unknown) basis; Denies depression, anxiety, hypnagogic (unknown) (no (unknown) (unknown) Reports nasal (units ( unknown) date) congestion at unknown) night and dry mouth in the morning; Denies runny (unknown) (no (unknown) (unknown) Reports nocturia (units (unknown) date) unknown) (unknown) (no (unknown) (unknown) Reports seasonal (units (unknown) date) allergies; Denies unknown) itchy eyes, redness or blurry vision (unknown) (no (unknown) (unknown) Resp (units (unkno wn) date) unknown) (unknown) (no (unknown) (unknown) Respiration 16 (units (unknown) date) unknown) (unknown) (no (unknown) (unknown) Respiratory (units (un known) date) unknown) (unknown) (no (unknown) (unknown) Return visit in (units (unknown) date) 6 months to unknown) assess continued response to PAP therapy (unknown) (no (unknown) (unknown) Sclera: sclerae (units (unknown) date) normal unknown) (unknown) (no (unknown) (unknown) Signed By: (units (unk nown) date) <Electronically unknown) signed by Oral Perez MD> (unknown) (no (unknown) (unknown) Signed (units (unkno wn) date) unknown) (unknown) (no (unknown) (unknown) Sitting and (units (un known) date) Readin = unknown) Moderate (unknown) (no (unknown) (unknown) Sitting and (units (un known) date) talking to unknown) someone: 0 = Never (None) (unknown) (no (unknown) (unknown) Sitting inactive (units (unknown) date) in a public unknown) place: 1 = Slight (unknown) (no (unknown) (unknown) Sitting quietly (units (unknown) date) after lunch (no unknown) alcohol): 3 = High (unknown) (no (unknown) (unknown) Sleep Schedule (units (unknown) date) Branch: unknown) consistent, daytime somnolence frequent, snoring not (unknown) (no (unknown) (unknown) Sleep Visit (units (un known) date) unknown) (unknown) (no (unknown) (unknown) [facility] unknown) (unknown) (no (unknown) (unknown) Smoking Status: (units (unknown) date) Never smoker unknown) (unknown) (no (unknown) (unknown) Social History (units (unknown) date) unknown) (unknown) (no (unknown) (unknown) Speech: speech (units (unknown) date) normal unknown) (unknown) (no (unknown) (unknown) Stopped for a (units ( unknown) date) few minutes in unknown) traffic: 0 = Never (None) (unknown) (no (unknown) (unknown) Symptoms (units (unkno wn) date) unknown) (unknown) (no (unknown) (unknown) Temp 97.5 F L (units ( unknown) date) unknown) (unknown) (no (unknown) (unknown) The patient (units (un known) date) reports symptoms unknown) of excessive daytime sleepiness as evidenced by (unknown) (no (unknown) (unknown) This can be seen (units (unknown) date) secondary to unknown) sleep apnea, depression, medical conditions or can (unknown) (no (unknown) (unknown) This note may (units ( unknown) date) have been all or unknown) partially generated using voice recognition (unknown) (no (unknown) (unknown) Tobacco + (units (unkn own) date) Substance Use unknown) (unknown) (no (unknown) (unknown) Tobacco Status (units (unknown) date) unknown) (unknown) (no (unknown) (unknown) Treatment (units (unkn own) date) Effects: Pap unknown) Treatment Response/Side Effects: adherent to current PAP (unknown) (no (unknown) (unknown) Treatment (units (unkn own) date) Response/Side unknown) Affects (unknown) (no (unknown) (unknown) Type 2 diabetes (units (unknown) date) mellitus unknown) (unknown) (no (unknown) (unknown) Usage: 63.3%, (units ( unknown) date) w/58.9% of that unknown) time > 4 hours. Leak: 35 sec flowAHI: 4.3 (unknown) (no (unknown) (unknown) Visit Reasons: (units (unknown) date) 6m unknown) (unknown) (no (unknown) (unknown) Visit type (FU): (units (unknown) date) follow up of RUTH unknown) therapy Follow up evaluation of RUTH therapy: (unknown) (no (unknown) (unknown) Vitals (units (unkno wn) date) unknown) (unknown) (no (unknown) (unknown) Watching TV: 3 = (units (unknown) date) High unknown) (unknown) (no (unknown) (unknown) Weight 52.163 kg (units (unknown) date) unknown) (unknown) (no (unknown) (unknown) While alcohol is (units (unknown) date) well known to unknown) speed the onset of sleep, it disrupts sleep in (unknown) (no (unknown) (unknown) activities, you (units (unknown) date) may have more unknown) problems getting back to sleep during the night. (unknown) (no (unknown) (unknown) addition, (units (unkn own) date) avoiding unknown) nighttime bright light exposure, which can occur with many (unknown) (no (unknown) (unknown) also a history (units (unknown) date) of hypertension unknown) with a Mallampati score of IV. For this the (unknown) (no (unknown) (unknown) an Chetek (units (unk nown) date) Sleepiness Score unknown) of 12/24. Discussed symptoms and risks of (unknown) (no (unknown) (unknown) and wakefulness. (units (unknown) date) Scheduled napping unknown) may be considered if appropriate for the (unknown) (no (unknown) (unknown) appreciated, (units (u nknown) date) apnea not unknown) witnessed, choking or gasping Choking or Gasping Branch: (unknown) (no (unknown) (unknown) be an (units (unkno wn) date) independent unknown) problem. This has improved with more consolidated sleep and (unknown) (no (unknown) (unknown) bedtime. Also (units (u nknown) date) dietary changes unknown) can cause sleep problems, if someone is struggling (unknown) (no (unknown) (unknown) been an issue (units ( unknown) date) just since the unknown) new machine. She is falling asleep during the day (unknown) (no (unknown) (unknown) been getting (units (un known) date) headaches in the unknown) morning, which interferes with her usage. This has (unknown) (no (unknown) (unknown) bothering her (units ( unknown) date) sleep is her unknown) 's snoring; it appears he stopped using his (unknown) (no (unknown) (unknown) bring your (units (unk nown) date) problems to bed. unknown) (unknown) (no (unknown) (unknown) but increased (units ( unknown) date) benefit from more unknown) usage was also explained. (unknown) (no (unknown) (unknown) by trouble (units (unk nown) date) falling asleep, unknown) trouble staying asleep and non-restorative sleep. (unknown) (no (unknown) (unknown) can be seen (units (un known) date) secondary to unknown) sleep apnea, insomnia, depression, medical conditions (unknown) (no (unknown) (unknown) caregiver/suppor (units (unknown) date) t person: No unknown) (unknown) (no (unknown) (unknown) comfortable, the (units (unknown) date) room should be unknown) quiet, not too hot or cold, or too bright. (unknown) (no (unknown) (unknown) compliance check (units (unknown) date) in 1 month unknown) (unknown) (no (unknown) (unknown) concentrating or (units (unknown) date) focusing unknown) (unknown) (no (unknown) (unknown) congestion at (units ( unknown) date) night, reports unknown) dry mouth (when the is no water in the machine), (unknown) (no (unknown) (unknown) conversations (units ( unknown) date) and activities unknown) before trying to go to sleep. Don't dwell on, or (unknown) (no (unknown) (unknown) daytime sleeping (units (unknown) date) and an elevated unknown) Chetek Sleepiness Scale score of 11/24. This (unknown) (no (unknown) (unknown) denied (units (unkno wn) date) unknown) (unknown) (no (unknown) (unknown) denied, early (units ( unknown) date) morning awakening unknown) denied, spending time in bed not sleeping a (unknown) (no (unknown) (unknown) denied, epworth (units (unknown) date) sleep scale score unknown) (), bruxism Bruxism Branch: denied, sleep (unknown) (no (unknown) (unknown) denies night (units (u nknown) date) sweats, reports unknown) morning headache (migraines), reports nasal (unknown) (no (unknown) (unknown) denies sore (units (un known) date) throat in the unknown) morning, denies nocturnal cough, denies nocturnal (unknown) (no (unknown) (unknown) details: to (units (un known) date) Kristopher, lives in unknown) [place] (unknown) (no (unknown) (unknown) dishes. And, (units (u nknown) date) remember, unknown) chocolate has caffeine. (unknown) (no (unknown) (unknown) dizziness in the (units (unknown) date) morning or denies unknown) trouble consentrating/foc using durng the day (unknown) (no (unknown) (unknown) done before bed (units (unknown) date) to help initiate unknown) a restful night's sleep. (unknown) (no (unknown) (unknown) drowsiness. (units (un known) date) unknown) (unknown) (no (unknown) (unknown) drowsy. (units (unkno wn) date) unknown) (unknown) (no (unknown) (unknown) hallucinations (units (unknown) date) or sleep unknown) paralysis (unknown) (no (unknown) (unknown) have occurred. (units (unknown) date) If there are any unknown) questions, please contact the Medical Records (unknown) (no (unknown) (unknown) household (units (unkn own) date) members: spouse unknown) (unknown) (no (unknown) (unknown) housing: house (units (unknown) date) unknown) (unknown) (no (unknown) (unknown) listen to the (units ( unknown) date) radio, or read as unknown) if you associate falling asleep with these (unknown) (no (unknown) (unknown) little, normal (units ( unknown) date) bedtime unknown) ([id number]), normal wake time ([id number]), sleep schedule (unknown) (no (unknown) (unknown) lives (units (unkno wn) date) independently: unknown) Yes (unknown) (no (unknown) (unknown) marital status: (units (unknown) date) unknown) (unknown) (no (unknown) (unknown) may occur. (units (unk nown) date) Occasional unknown) wrong-word or 'sound-alike' substitutions may have (unknown) (no (unknown) (unknown) nose or sore (units (u nknown) date) throat in the unknown) morning (unknown) (no (unknown) (unknown) occurred due to (units (unknown) date) the inherent unknown) limitations of voice recognition software. Please (unknown) (no (unknown) (unknown) older people who (units (unknown) date) may not venture unknown) outside as frequently as children and adults. (unknown) (no (unknown) (unknown) on PAP well and (units (unknown) date) sleep quality unknown) well (unknown) (no (unknown) (unknown) optimal sleep (units ( unknown) date) schedule. unknown) (unknown) (no (unknown) (unknown) or can be a (units (unk nown) date) primary problem. unknown) This is unchanged today with a daytime sleeping and (unknown) (no (unknown) (unknown) palpitations, (units ( unknown) date) reports heart unknown) burn symptoms at night, reports nocturia, denies (unknown) (no (unknown) (unknown) patient has been (units (unknown) date) on nasal CPAP unknown) therapy. Her machine was replaced in 2017 and is (unknown) (no (unknown) (unknown) personal (units (unkno wn) date) electronic unknown) devices, can also help maintain a healthy sleep-wake cycle. (unknown) (no (unknown) (unknown) problems with (units ( unknown) date) the pressure or unknown) the mask. She continues to use her machine (unknown) (no (unknown) (unknown) read the note (units ( unknown) date) carefully and unknown) recognize, using context, where these substitutions (unknown) (no (unknown) (unknown) regularly and (units ( unknown) date) clinical response unknown) to nasal CPAP, with an optimal flowAHI. She (unknown) (no (unknown) (unknown) replacement (units (un known) date) machine. She is unknown) due for a new machine and so the replacment machine (unknown) (no (unknown) (unknown) reports no (units (unk nown) date) snoring but is unknown) not feeling as rested in the morning. She would like (unknown) (no (unknown) (unknown) sentences, no (units ( unknown) date) audible wheezes unknown) and no cough (unknown) (no (unknown) (unknown) she reports she (units (unknown) date) feels she is unknown) sleeping well. Sleep hygiene has been reviewed. we (unknown) (no (unknown) (unknown) since the new (units ( unknown) date) machine. unknown) (unknown) (no (unknown) (unknown) sleepiness. she (units (unknown) date) reports an acute unknown) worsening of her sleep since getting the new (unknown) (no (unknown) (unknown) software. (units (unkn own) date) Although every unknown) effort is made to edit content, manager report errors (unknown) (no (unknown) (unknown) taken in the (units (u nknown) date) morning or late unknown) afternoon. A relaxing exercise, like yoga, can be (unknown) (no (unknown) (unknown) talking Sleep (units ( unknown) date) Talking Branch: unknown) denied and sleep walking Sleep Walking Branch: (unknown) (no (unknown) (unknown) the second half (units (unknown) date) as the body unknown) begins to metabolize the alcohol, causing arousal. (unknown) (no (unknown) (unknown) therapy. She has (units (unknown) date) been doing well unknown) since last visit. She is reporting no problems (unknown) (no (unknown) (unknown) therapy. The (units (u nknown) date) patient is unknown) willing to continue with PAP therapy. (unknown) (no (unknown) (unknown) to discuss OA (units ( unknown) date) for travel. She unknown) stopped using her machine for a month. She has (unknown) (no (unknown) (unknown) treatment (units (unkn own) date) variable response unknown) to treatment (unknown) (no (unknown) (unknown) unspecified (units (un known) date) unknown) (unknown) (no (unknown) (unknown) weakness (units (unkno wn) date) associated with unknown) strong emotion or sleep paralysis (unknown) (no (unknown) (unknown) will be changed (units (unknown) date) out. It is clear unknown) she would benefit from the continued use of PAP (unknown) (no (unknown) (unknown) will reassess on (units (unknown) date) the new cpap unknown) machine. (unknown) (no (unknown) (unknown) with a sleep (units (u nknown) date) problem, it's not unknown) a good time to start experimenting with spicy (unknown) (no (unknown) (unknown) with the (units (unkno wn) date) machine, mask or unknown) pressure. Mentions that the only thing really (unknown) (no (unknown) (unknown) working well. (units ( unknown) date) Patient's unknown) compliance is less than adequate but with an optimal Social History date description facility 2022-06-21 00:00 Never smoked tobacco [facility] Vital Signs date measurement value units 2022-06-21 00:00 BMI 21.7 kg/m2 2022-06-21 00:00 BP_diastolic 82 mmHg 2022-06-21 00:00 BP_systolic 119 mmHg 2022-06-21 00:00 heart_rate 76 /min 2022-06-21 00:00 height_metric 154.94 cm 2022-06-21 00:00 height_standard 61 in 2022-06-21 00:00 respiration_rate 16 /min 2022-06-21 00:00 temperature_metric 36.39 C 2022-06-21 00:00 temperature_standard 97.5 F 2022-06-21 00:00 weight_metric 52.16 kg 2022-06-21 00:00 weight_standard 114.99 lb
--- NOTE | 2022-08-03 16:03 | XRAY Report ---
PROCEDURE: Ribs w/PA Chest LT INDICATIONS: left rib pain. TECHNIQUE: 3 views of the left ribs were acquired, along with a single view chest. COMPARISON: Chest xray 11/12/21 FINDINGS: Surgical changes and devices: None. Bones and chest wall: No fractures or dislocations. No suspicious bony lesions. Overlying soft tis sues appear unremarkable. Lungs and pleura: No pleural effusions or pneumothorax. Lungs appear clear. Mediastinum: Mediastinal contours appear normal. Heart size is normal. IMPRESSION: No visualized acute fracture or dislocation. However, occult injury cannot be excluded. Recommend yon rt interval imaging follow-up in 7-10 days as clinically indicated for additional evaluation. Reviewed by: Marie Sorensen MD on 08/03/2022 4:01 PM PST Approved by: Marie Sorensen MD on 08/03/2022 4:01 PM [facility] Station ID: [id number]
[2022-08-03 16:49] VITALS: BP 150/80
--- NOTE | 2022-08-03 17:51 | ED Physician Documentation ---
History of Present Illness - Stated complaint Stated Complaint: LT SIDE RIB PX - Chief complaint Chief Complaint: Trauma Ch/Bk - Additonal information Additional information: History obtained from patient. Good historian. Reports that she was at her chiropractor appointment yesterday when he attempted an adjustment. He pressed down forcefully on her left rib cage and she felt a pop and screamed in pain. She has had pain with deep breathing since. No shortness of air with the exception of deep breathing. No ecchymosis. No history of similar in the past. She frequently goes to the chiropractor for adjustments. 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 : None HEENT: None Psych: None Musculoskeletal: None Derm: None - Past Surgical History Past Surgical History: Yes General: Cholecystectomy, Colonoscopy Ortho: Other /MAINTENANCE PLUMBER: Oophrectomy - Present Medications Home Medications: Ambulatory Orders Medication Instructions Recorded Confirmed Aspirin [Aspirin EC] 81 mg PO QPM 04/04/15 12/23/20 Fexofenadine [Sushma] 180 mg PO QPM 04/04/15 12/23/20 Lysine HCl [l-Lysine] 500 tab PO DAILY 04/04/15 12/23/20 Metformin HCl [Metformin HCl ER] 1,000 mg PO BID 04/04/15 12/23/20 Simvastatin 40 mg PO QPM 04/04/15 12/23/20 Ubidecarenone [Coq-10] 300 mg PO DAILY 04/04/15 12/23/20 lisinopriL [Lisinopril] 5 mg PO QPM 04/04/15 12/23/20 EPINEPHrine [Epinephrine] 0.3 mg IJ PRN PRN #2 syr 12/23/20 EPINEPHrine [Epinephrine] 0.3 mg IM ONCE PRN 12/23/20 12/23/20 Famotidine [Pepcid] 20 mg PO BID #60 tablet 11/12/21 Promethazine [Phenergan] 25 mg PO Q6H PRN #10 tab 04/28/22 Sucralfate [Carafate] 1 gm PO ACHS #60 tablet 11/12/21 - Allergies Allergies/Adverse Reactions: Allergies Allergy/AdvReac Type Severity Reaction Status Date / Time ceftriaxone [From Rocephin] Allergy Rash Verified 08/03/22 15:17 Cephalosporins Allergy Hives Verified 08/03/22 15:17 codeine Allergy Nausea Verified 08/03/22 15:17 venom-honey bee Allergy Anaphylaxis Verified 08/03/22 15:17 [bee venom (honey bee)] - Social History Does the pt smoke?: No Smoking Status: Never smoker Does the pt drink ETOH?: No Does the pt have substance abuse?: No - Immunizations Immunizations are current?: Yes - POLST Patient has POLST: No PD ED PE NORMAL - General General: Alert and oriented X 3, No acute distress - HEENT HEENT: Atraumatic, Moist mucous membranes - Neck Neck: Supple, no meningeal sign, No adenopathy - Cardiac Cardiac: RRR, No murmur - Respiratory Respiratory: No respiratory distress, Clear bilaterally, Other (Tenderness elicited with palpation under the left breast and lateral rib henry without crepitus ecchymosis noted. She is able to take full deep breaths.) - Abdomen Abdomen: Normal bowel sounds, Soft - Back Back: No CVA TTP Results - Vitals Vitals: Vital Signs - 24 hr 08/03/22 08/03/22 15:12 16:48 Temperature 36.4 C L 36.5 C Heart Rate 85 86 Respiratory 20 18 Rate Blood Pressure 162/88 H 150/80 H O2 Saturation 99 100 Oxygen O2 Source Room air - Rads (name of study) left ribs with PA Radiology: Final report received (No obvious fractures) PD Medical Decision Making - ED course Complexity details: considered differential, d/w patient ED course: 67-year-old female presents emergency department for evaluation of acute left- sided rib and chest wall pain after chiropractic adjustment yesterday in which she pressed down forcefully on her ribs. She felt a pop. She has been taking Excedrin without relief of symptoms. On exam she is able to take full deep breaths. There was tenderness elicited with palpation under the left breast and the lateral rib henry. No crepitus or ecchymosis. X-ray of the ribs and chest wall did not show any obvious fracture, pneumothorax pneumonia or pleural effusion. This pain is reproducible and most likely musculoskeletal in origin. I did offer the patient hydrocodone or oxycodone for analgesia but she declined. Thus we discussed alternative pain regiment management with Tylenol/ibuprofen and Salonpas patches which she was comfortable doing. She is discharged home in stable condition. Emergent return precautions discussed Departure - Departure Disposition: Home, Self Care Clinical Impression: Rib pain on left side Condition: Stable Record reviewed to determine appropriate education?: Yes Instructions: ED Contusion Chest Wall Ch Comments: The x-ray of your ribs and chest do not show any obvious broken bones. It is possible that you simply have contusion or bruising within the rib wall after your adjustment yesterday. I recommend that you take 500 mg of Tylenol or alternate with 600 mg of Motrin 3 times a day to help with pain. A lidocaine or Salonpas patch placed over the area of the ribs that is most tender can also be helpful. If you find that despite taking these medications you are having worsening symptoms, develop any severe shortness of air or have bloody sputum you should return immediately to the ER.
== END 2022-08-03 17:53 | disposition home or self-care (01) ==
LOC: ED 15:07
DX: R07.81 Pleurodynia (principal)
CPT/HCPCS: 99283